=== PATIENT | female | born 1950 | race Caucasian/White ===

== ENCOUNTER → 2017-01-07 | Outpatient (CLI) | payer OTHER ==
--- NOTE | 2017-01-07 15:08 | BD ---
EXAMINATION TYPE: MG DEXA axial skeleton. DATE OF EXAM: 01/07/2017 COMPARISON: NONE CLINICAL HISTORY: post menopausal Height: 5'2 Weight: 151 FRAX RISK QUESTIONS: Alcohol (3 or more units per day): no Family History (Parent hip fracture): yes Glucocorticoids (More than 3mos): no (Ex: prednisone, prednisolone, methylprednisolone, dexamethasone, and hydrocortisone). History of Fracture in Adulthood: no Secondary Osteoporosis: 1. Type 1 Diabetes: no 2. Hyperthyroidism: no 3. Menopause before 45: yes 4. Malnutrition: no 5. Chronic liver disease: no Rheumatoid Arthritis: no Current Tobacco Use: yes RISK FACTORS HISTORY OF: Family History of Osteoporosis: Diet low in dairy products/other sources of calcium: Postmenopausal woman: MEDICATIONS: Additional Medications: hypertension, cholesterol, pain, blood thinner Additional History: post menopausal EXAM MEASUREMENTS: Bone mineral densitometry was performed using the [employer] System. Bone mineral density as measured about the Lumbar spine is: ----- L1-L4(G/cm2): 0.841 T Score Values are as follows: ----- L2: -2.9 ----- L3: -3.8 ----- L4: -2.7 ----- L1-L4: -2.8 Bone mineral density about the R hip (g/cm2): 0.696 Bone mineral density about the L hip (g/cm2): 0.698 T Score values are as follows: -----R Neck: -2.5 -----L Neck: -2.4 -----R Total: -1.7 -----L Total: -1.6 IMPRESSION: Osteoporosis (T Score less than -2.5) as noted by T Score values at theL1-L4 There is increased fracture risk and therapy is usually indicated based on age. Re-Screen 1-2 years. NOTE: T-SCORE=SD OF THE YOUNG ADULT MEAN.
--- NOTE | 2017-01-09 08:17 | MM ---
Reason for exam: screening (asymptomatic). History: Patient is postmenopausal. Family history of breast cancer in sister at age 58. Benign excisional biopsy of both breasts. Benign excisional biopsy of the left breast. Took estrogen for 1 year beginning at age 39. Physical Findings: A clinical breast exam by your physician is recommended on an annual basis and results should be correlated with mammographic findings. MG Screening Mammo w CAD Bilateral CC and MLO view(s) were taken. The breast tissue is heterogeneously dense. This may lower the sensitivity of mammography. Stable benign calcifications. Focal asymmetry upper outer left breast 9 cm from nipple. This finding is changed when compared with previous exams. ASSESSMENT: Incomplete: need additional imaging evaluation, BI-RAD 0 RECOMMENDATION: Special view mammogram of the left breast. If lesion persists on supplemental views, image directed ultrasound is recommended. [facility] will attempt to contact patient to return for supplemental views and ultrasound if indicated.
== END | disposition home or self-care (01) ==
LOC: RADMAMWWP 13:18
PROVIDERS: ATTEND Internal Medicine
DX: Z12.31 Encounter for screening mammogram for malignant neoplasm of breast (principal); M81.0 Age-related osteoporosis without current pathological fracture; Z78.0 Asymptomatic menopausal state
CPT/HCPCS: 77080; G0202

== ENCOUNTER → 2017-01-13 | Outpatient (CLI) | payer OTHER ==
--- NOTE | 2017-01-13 14:47 | MM ---
Reason for exam: additional evaluation requested from abnormal screening. Last mammogram was performed less than 1 month ago. History: Patient is postmenopausal. Family history of breast cancer in sister at age 58. Benign excisional biopsy of both breasts. Benign excisional biopsy of the left breast. Took estrogen for 1 year beginning at age 39. Physical Findings: Nurse did not find any significant physical abnormalities on exam. MG Work Up Mamm w CAD LT CC and MLO view(s) were taken of the left breast. Prior study comparison: January 07, 2017, bilateral MG screening mammo w CAD. Asymmetric breast tissue in the left upper outer quadrant persists stable from 2010. No new lesion evident. These results were verbally communicated with the patient and result sheet given to the patient on 01/13/17. ASSESSMENT: Benign, BI-RAD 2 RECOMMENDATION: Return to routine screening mammogram schedule for both breasts. Back on schedule.
== END | disposition home or self-care (01) ==
LOC: RADMAMWWP 12:51
PROVIDERS: ATTEND Internal Medicine
DX: R92.8 Other abnormal and inconclusive findings on diagnostic imaging of breast (principal)

== ENCOUNTER → 2017-02-21 | Outpatient (CLI) | payer OTHER ==
--- NOTE | 2017-02-23 18:39 | PE ---
EXAMINATION TYPE: PET CT fusion skull to thigh DATE OF EXAM: 02/23/2017 COMPARISON: None HISTORY: Lung cancer. Staging. TECHNIQUE: Following the intravenous administration of 13.14 mCi of F-18 FDG, whole body images are performed from the skull base to the midthigh. Images are reviewed on the computer in the coronal, a xial, and sagittal planes. Reconstructed rotating images are created on independent workstation and reviewed on the computer. A localization and attenuation correction CT is performed in conjunction with the PET scan. DLP of 293.54 SCAN: Initial staging. FINDINGS: SKULL BASE AND NECK: No hypermetabolic activity. CHEST, MEDIASTINUM, AND HILAR REGION: The known right lower lobe thick walled cavitary lung mass measuring up to 8.6 x 8.3 cm in transverse by anterior posterior dimension with a rim measuring 2.7 cm is strongly hypermetabolic with a maximu m SUV of 17.03. Smaller right lower lobe 5.5 mm and multiple surrounding subcentimeter satellite nodu les are seen that are below the threshold of PET CT. Left apical solid pulmonary nodule measures 6 mm and is also below the threshold of PET CT as it is not hypermetabolic, however presumed to represent metastasis given extent of disease. Findings are superimposed upon mild centrilobular pulmonary emph ysematous changes and multifocal atelectasis. Numerous enlarged hilar lymph nodes and mediastinal lymph nodes are seen that are hypermetabolic. Wit hin the right hilum conglomeration of lymph nodes measures approximately 2.7 x 1.4 cm with a maximum SUV of 9.87 and subcarinal lymph node measures 1.2 cm in short axis with a maximum SUV of 7.46. Pretr acheal lymph node measures 1.7 cm with an SUV of 15.07. Aorticopulmonary window node measures 1.2 cm in short axis with a maximum SUV of 4.8 cm. Within the superior mediastinum in the pretracheal space hypermetabolic adenopathy is seen measuring 1.1 cm in short axis. Left supraclavicular lymph node is also hypermetabolic measuring 1.7 cm on series 3 image 44 although a right-sided nonenlarged supracla vicular lymph node is seen measuring only 8 mm in short axis and does not demonstrate increased avidi ty likely due to size with a maximum SUV of 1.91. ABDOMEN AND PELVIS: No focal hypermetabolic activity. OSSEOUS STRUCTURES: Lytic sternal lesion is seen on series 3 image 69 and should be considered metast asis with a maximum SUV of 9.95. No ostial lysis is seen of the adjacent ribs on the right abutting t he cavitary lesion. Other metastatic foci are seen within the C7 and C6 vertebral bodies and transver se processes with a maximum SUV of 6.76. Hypermetabolic sclerotic lesion of the left hemisacrum and l ytic lesions are seen. On series 3 image 167 measuring 8 mm and on series 3 image 162 measuring 1.2 c m respectively. Left fascial 1.0 cm sclerotic hypermetabolic lesion is also present as is a lytic les ion of the left femur measuring at least 2.5 x 2.9 cm of the femoral neck on series 3 image 200. Mark Anthony tional metastatic hypermetabolic foci are seen within the thoracic and lumbar vertebral bodies with s ome of the largest present at T12 and T11. These are mixed sclerotic and lytic. These are highly susp icious for considered metastasis OTHER CT: No pleural effusion or pneumothorax is seen. Descending thoracic aortic aneurysm is present as descending thoracic aorta measures up to 4.0 cm. Post obstructive atelectasis is seen within the right lower lobe due to endobronchial obstruction and narrowing by the right hilar adenopathy and rig ht lower lobe mass. Unenhanced liver, gallbladder, spleen, adrenal glands, pancreas, and kidneys are of unremarkable morphology. Mild calcific atheromatous changes are present of the abdominal aorta. Fe moral-femoral vascular shunt is present within the pelvis. No discrete adenopathy is seen within the abdomen or pelvis. Bowel is of normal course and caliber. IMPRESSION: 1. Large right lower lobe strongly hypermetabolic cavitary known neoplasm with the PET/CT staging of T4 N3 M1 as there is contralateral presumed pulmonary metastasis, supraclavicular hypermetabolic charbel opathy and distant metastasis within the axial skeleton and left femur. 2. Descending thoracic aortic aneurysm measuring 4.0 cm. 2. No evidence of solid organ metastasis within the abdomen or abdominal/pelvic adenopathy.
== END | disposition home or self-care (01) ==
LOC: RADPETMAIN 12:54
PROVIDERS: ATTEND Radiology Radiation Oncology
DX: C34.31 Malignant neoplasm of lower lobe, right bronchus or lung (principal); I71.2 Thoracic aortic aneurysm, without rupture
CPT/HCPCS: 78815; A9552

== ENCOUNTER 2017-03-30 16:40 | Inpatient (IN) | payer OTHER ==
[2017-03-30] MEDS ORDERED: methylPREDNISolone SOD SUCCI 125 MG/2 ML VIAL IV STA (18:19)
[2017-03-30] MEDS ORDERED: IPRATROPIUM-ALBUTEROL 3 ML NEB INHALATION STA (18:19)
[2017-03-30] MEDS ORDERED: SODIUM CHLORIDE 0.9% 1,000 ML IV STA ×2 (18:19→22:10)
--- NOTE | 2017-03-30 18:27 | ED ---
General Adult HPI - General Chief complaint: Extremity Problem,Nontraumatic Stated complaint: Circulation problems in feet Time Seen by Provider: 03/30/17 18:10 Source: patient, family Mode of arrival: wheelchair Limitations: no limitations - History of Present Illness Initial comments: This 66-year-old white female presents with son with the complaint of the lower extremities feeling cool to touch. He states that they first noticed this around 11 AM today. She also is complaining of some pain to the bilateral feet. He states that the feet look purplish on the bottom. She does have a history of previous lower extremity bypass surgery by Dr. Brown approximately 1-1/2 months ago. This apparently was a redo surgery. She had a left second toe amputation prior to this. She had an x-ray done well at [facility] of her chest and they noted his age for lung cancer. She apparently has not been on any treatment for the lung cancer. She was diagnosed with stage IV lung cancer. She apparently has metastases to her brain as well as to the bones in her lower extremity. She chose to not undergo any treatment for her cancer. She has been having some chronic shortness of breath and presents with a pulse ox of 85% on room air. She is not on any home oxygen. There has been no fevers or chills. She denies any actual chest pain. She does complain of some shortness of breath. She has had an occasional cough. The son relates that she does seem somewhat more forgetful recently. - Related Data Home Medications Medication Instructions Recorded Confirmed Atorvastatin [Lipitor] 40 mg PO DAILY 02/25/17 03/30/17 Cilostazol [Pletal] 50 mg PO BID 02/25/17 03/30/17 Metoprolol Tartrate [Lopressor] 25 mg PO BID 02/25/17 03/30/17 Albuterol Inhaler [Ventolin Hfa 2 puff INHALATION RT-Q4H PRN 03/30/17 03/30/17 Inhaler] Amitriptyline HCl [Elavil] 25 mg PO DAILY 03/30/17 03/30/17 Aspirin EC [Ecotrin Low Dose] 81 mg PO DAILY 03/30/17 03/30/17 Ergocalciferol (Vitamin D2) 50,000 unit PO VELA 03/30/17 03/30/17 [Vitamin D2] Lisinopril [Zestril] 5 mg PO DAILY 03/30/17 03/30/17 Losartan [Cozaar] 25 mg PO HS 03/30/17 03/30/17 Morphine Sulfate [Ms Contin] 15 mg PO BID 03/30/17 03/30/17 Omeprazole 20 mg PO DAILY 03/30/17 03/30/17 Rivaroxaban [Xarelto] 20 mg PO HS 03/30/17 03/30/17 guaiFENesin [Mucinex] 1,200 mg PO BID 03/30/17 03/30/17 Previous Rx's Medication Instructions Recorded Budesonide-Formot 160-4.5 Mcg 2 puff INHALATION RT-BID #1 inhaler 03/02/17 [Symbicort 160-4.5 Mcg Inhaler] Ipratropium-Albuterol Nebulize 3 ml INHALATION RT-QID PRN #120 03/02/17 [Duoneb 0.5 mg-3 mg/3 ml Soln] ampul.neb Allergies Allergy/AdvReac Type Severity Reaction Status Date / Time No Known Allergies Allergy Verified 03/30/17 18:31 Review of Systems ROS Statement: Those systems with pertinent positive or pertinent negative responses have been documented in the HPI. ROS Other: All systems not noted in ROS Statement are negative. Past Medical History Past Medical History: Cancer, COPD, Deep Vein Thrombosis (DVT), Hypertension Additional Past Medical History / Comment(s): lung cancer History of Any Multi-Drug Resistant Organisms: None Reported Additional Past Surgical History / Comment(s): Femoral bypass, toe amputation, cervical infusion, tubal ligation Past Psychological History: No Psychological Hx Reported Smoking Status: Former smoker Past Alcohol Use History: None Reported Past Drug Use History: None Reported - Past Family History Mother History Unknown: Yes General Exam - General Exam Comments Initial Comments: GENERAL: The patient is well nourished and well hydrated. VITAL SIGNS: Heart rate, blood pressure, respiratory rate reviewed as recorded in nurse's notes. EYES: Pupils are round and reactive. Extraocular movements are intact. No conjunctival / lid redness or swelling. ENT: No external evidence of injury, swelling, or ecchymosis. Airway is patent. Throat is clear. NECK: Nontender. No swelling or evidence of injury. No subcutaneous emphysema. Trachea is midline. No thyroid mass. HEART: A tachycardic heart rate is noted. Good peripheral pulses. LUNGS/CHEST: There is scattered wheezing noted bilaterally. No ecchymosis, subcutaneous emphysema, or tenderness. The patient is fairly tachypneic. ABDOMEN: Abdomen soft without tenderness. No palpable masses or organomegaly. No peritoneal signs. No abdominal wall swelling or ecchymosis. EXTREMITIES: Normal muscle tone and function. No thoracolumbar tenderness. There is an amputation of the left second toe. There is a darkish hue to the plantar aspect of both feet but there is good capillary refill throughout. There is decreased pedal pulses noted bilaterally. There may be some slight tenderness to the feet. NEUROLOGIC: Sensation is grossly intact. Cranial nerve exam reveals face is symmetrical, tongue is midline, speech is clear. SKIN: There is a darkish she is noted to the plantar aspect of bilateral feet. No induration or masses noted. PSYCHIATRIC: Alert and oriented. Appropriate behavior and judgment. 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 All diagnostics are reviewed. The patient had an EKG done which shows a sinus tachycardia at a rate of 136. There is no acute ST-T wave changes otherwise noted. The DC interval is 138, QRS duration is 68, and the QTC intervals 424. The patient does receive a DuoNeb breathing treatment. She also receives oxygen. The CO2 is slightly low on the laboratory analysis in the white blood cell count is elevated. An arterial Doppler initially was ordered but this was canceled as the technologist is unable to perform this test. There is no handheld Dopplers to further evaluate the pulses in the feet but on recheck there does appear to be very slight pedal pulses noted. The calcium is elevated and this is likely due to her lung cancer. Patient had bilateral lower extremity venous Dopplers and this does not show any evidence of DVT. She also had a computed tomography scan of the thorax and abdomen and this does not show any evidence of pulmonary embolism. It does show the very large cavitated mass measures approximately 10 cm in the right lung. It also shows some associated pulmonary infiltrates. There is a 4 cm thoracic aortic aneurysm. She will be covered with antibiotics for likely hospital-acquired pneumonia. This felt as though she has very advanced lung cancer with metastases and has an extremely poor prognosis. Is felt that the dark hue to her feet likely it was due to some associated hypoxia and there is no clinical evidence of arterial occlusion to lower extremities. The case is discussed with Dr. Ramos and he is agreeable to admission with pulmonology and vascular surgery to consult. Approximately 40 minutes of critical care time is utilized and the treatment of the patient. Upon discussing CODE STATUS, she relates that she does not want to be on a ventilator but is agreeable to CPR, chest compression and IV medications. - Lab Data Result diagrams: 03/30/17 18:22 03/30/17 18:22 Lab Results 03/30/17 03/30/17 03/30/17 Range/Units 18:22 18:22 18:22 WBC 17.2 H (3.8-10.6) k/uL RBC 4.43 (3.80-5.40) m/uL Hgb 11.7 (11.4-16.0) gm/dL Hct 37.7 (34.0-46.0) % MCV 85.0 D (80.0-100.0) fL MCH 26.3 (25.0-35.0) pg MCHC 30.9 L (31.0-37.0) g/dL RDW 15.2 (11.5-15.5) % Plt Count 232 (150-450) k/uL Neutrophils % 80 % Lymphocytes % 9 % Monocytes % 6 % Eosinophils % 2 % Basophils % 0 % Neutrophils # 13.8 H (1.3-7.7) k/uL Lymphocytes # 1.5 (1.0-4.8) k/uL Monocytes # 1.1 H (0-1.0) k/uL Eosinophils # 0.4 (0-0.7) k/uL Basophils # 0.1 (0-0.2) k/uL Hypochromasia Marked Poikilocytosis Slight PT (9.0-12.0) sec INR (<1.2) APTT (22.0-30.0) sec D-Dimer (<0.60) mg/L FEU Sodium 137 (137-145) mmol/L Potassium 4.9 (3.5-5.1) mmol/L Chloride 105 (98-107) mmol/L Carbon Dioxide 19 L (22-30) mmol/L Anion Gap 13 mmol/L BUN 40 H (7-17) mg/dL Creatinine 0.90 (0.52-1.04) mg/dL Est GFR (MDRD) Af Amer >60 (>60 ml/min/1.73 sqM) Est GFR (MDRD) Non-Af >60 (>60 ml/min/1.73 sqM) Glucose 105 H (74-99) mg/dL Calcium 13.2 H* (8.4-10.2) mg/dL Total Bilirubin 0.6 (0.2-1.3) mg/dL AST 31 (14-36) U/L ALT 96 H (9-52) U/L Alkaline Phosphatase 317 H (38-126) U/L Total Creatine Kinase 42 (30-135) U/L CK-MB (CK-2) 1.4 (0.0-2.4) ng/mL CK-MB (CK-2) Rel Index 3.3 Troponin I <0.012 (0.000-0.034) ng/mL NT-Pro-B Natriuret Pep pg/mL Total Protein 7.2 (6.3-8.2) g/dL Albumin 3.5 (3.5-5.0) g/dL 03/30/17 03/30/17 Range/Units 18:22 18:22 WBC (3.8-10.6) k/uL RBC (3.80-5.40) m/uL Hgb (11.4-16.0) gm/dL Hct (34.0-46.0) % MCV (80.0-100.0) fL MCH (25.0-35.0) pg MCHC (31.0-37.0) g/dL RDW (11.5-15.5) % Plt Count (150-450) k/uL Neutrophils % % Lymphocytes % % Monocytes % % Eosinophils % % Basophils % % Neutrophils # (1.3-7.7) k/uL Lymphocytes # (1.0-4.8) k/uL Monocytes # (0-1.0) k/uL Eosinophils # (0-0.7) k/uL Basophils # (0-0.2) k/uL Hypochromasia Poikilocytosis PT 11.1 (9.0-12.0) sec INR 1.1 (<1.2) APTT 19.6 L (22.0-30.0) sec D-Dimer 11.73 H (<0.60) mg/L FEU Sodium (137-145) mmol/L Potassium (3.5-5.1) mmol/L Chloride (98-107) mmol/L Carbon Dioxide (22-30) mmol/L Anion Gap mmol/L BUN (7-17) mg/dL Creatinine (0.52-1.04) mg/dL Est GFR (MDRD) Af Amer (>60 ml/min/1.73 sqM) Est GFR (MDRD) Non-Af (>60 ml/min/1.73 sqM) Glucose (74-99) mg/dL Calcium (8.4-10.2) mg/dL Total Bilirubin (0.2-1.3) mg/dL AST (14-36) U/L ALT (9-52) U/L Alkaline Phosphatase (38-126) U/L Total Creatine Kinase (30-135) U/L CK-MB (CK-2) (0.0-2.4) ng/mL CK-MB (CK-2) Rel Index Troponin I (0.000-0.034) ng/mL NT-Pro-B Natriuret Pep 316 pg/mL Total Protein (6.3-8.2) g/dL Albumin (3.5-5.0) g/dL Disposition Clinical Impression: Acute respiratory failure, Lung cancer, Brain metastases, Bone metastases, Hypoxia, Hypercalcemia of malignancy, Peripheral vascular disease, Sinus tachycardia, Hospital-acquired pneumonia, Thoracic aortic aneurysm, COPD ( chronic obstructive pulmonary disease) Disposition: ADMITTED IP TO THIS [facility] Condition: Serious Referrals: Tesha Bynum MD [Primary Care Provider] - 1-2 days Time of Disposition: 22:45 Decision Date: 03/30/17 Decision Time: 22:45
[2017-03-30 18:37] LABS: Basophils # (A) 0.1 k/uL (0-0.2); Basophils % (A) 0 %; CH 26.5; CHCM 31.2; Eosinophils # (A) 0.4 k/uL (0-0.7); Eosinophils % (A) 2 %; HCT 37.7 % (34.0-46.0); HDW 3.54; HGB 11.7 gm/dL (11.4-16.0); Hypochromasia Marked; Luc # (Auto) 0.36; Luc % (Auto) 2; Lymphocytes # (A) 1.5 k/uL (1.0-4.8); Lymphocytes % (A) 9 %; MCH 26.3 pg (25.0-35.0); MCHC 30.9 g/dL (31.0-37.0); Mean Platelet Volume 7.9; Monocytes # (A) 1.1 k/uL (0-1.0); Monocytes % (A) 6 %; Neutrophils # (A) 13.8 k/uL (1.3-7.7); Neutrophils % (A) 80 %; Poikilocytosis Slight; RBC 4.43 m/uL (3.80-5.40); RDW 15.2 % (11.5-15.5); WBC 17.2 k/uL (3.8-10.6)
[2017-03-30 18:50] LABS: ALT 96 U/L (9-52); AST 31 U/L (14-36); Alkaline Phosphatase 317 U/L (38-126); Anion Gap 13 mmol/L; Blood Urea Nitrogen 40 mg/dL (7-17); Carbon Dioxide 19 mmol/L (22-30); Chloride 105 mmol/L (98-107); Glucose 105 mg/dL (74-99); INR 1.1 (<1.2); Non-African American GFR(MDRD) >60 (>60 ml/min/1.73 sqM); Potassium 4.9 mmol/L (3.5-5.1); Prothrombin Time 11.1 sec (9.0-12.0); Sodium 137 mmol/L (137-145); Total Bilirubin 0.6 mg/dL (0.2-1.3); Total Protein 7.2 g/dL (6.3-8.2)
[2017-03-30 18:55] LABS: Calcium 13.2 mg/dL (8.4-10.2)
--- NOTE | 2017-03-30 18:58 | XR ---
EXAMINATION TYPE: XR chest 2V DATE OF EXAM: 03/30/2017 COMPARISON: 02/25/2017 HISTORY: Short of breath. Lung cancer. TECHNIQUE: Frontal and lateral views of the chest are obtained. FINDINGS: There is a 13 cm masslike density with fluid level in the right posterior midlung field. T here is pulmonary vascular congestion. Thoracic aorta is atheromatous. There is slight blunting of ri ght costophrenic angle. IMPRESSION: There is a large cavitating mass in the right midlung that is slightly increased in size compared to last exam. There is new pulmonary vascular congestion consistent with congestive heart f ailure. Lymphangitic metastatic disease cannot be excluded. Small right pleural effusion. Aortic aneu rysm seen at the arch. This measures 5 cm and probably not changed.
[2017-03-30 18:59] LABS: Creatine Kinase 42 U/L (30-135)
[2017-03-30 19:05] LABS: Partial Thromboplastin Time 19.6 sec (22.0-30.0)
[2017-03-30 19:12] LABS: Creatine Kinase MB 1.4 ng/mL (0.0-2.4); Troponin I <0.012 ng/mL (0.000-0.034)
[2017-03-30] MEDS ORDERED: RX INFO: IV CONTRAST WAS GIVEN 1 EACH MISC MISCELLANE PRN (20:09)
--- NOTE | 2017-03-30 22:00 | CT ---
EXAMINATION TYPE: CT angio thoracic/abd aorta DATE OF EXAM: 03/30/2017 COMPARISON: NONE HISTORY: Shortness of breath and Leg pain CT DLP: 981.6 mGycm. Automated Exposure Control for Dose Reduction was Utilized. CONTRAST: CT scan of the thorax, abdomen and pelvis is performed with IV Contrast, patient injected with 100 mL of Omnipaque 350. There are 3-D post processed images. FINDINGS: There is consolidation in the right posterior lung field with cavitation. This measures 10 cm. There is patchy subpleural interstitial infiltrate in both lungs. There is 4 cm aneurysm of the ascending a eugenia. There is 4 cm aneurysm of the aortic arch. The descending aorta measures 3.3 cm. There is massl duyen infiltrate at the right pulmonary hilum. There is no evidence of aortic dissection. There is atherosclerotic plaque in the abdominal aorta. Th ere is occlusion of the left common iliac artery at its origin. The right common iliac arteries paten t. There is patency of the superior mesenteric artery and the celiac artery. There is bilateral patency of the renal arteries. Kidneys show normal contrast opacification. There is no hydronephrosis. There is patency of the right internal and external iliac arteries. There is a femoral-femoral artery bypass graft that appears patent. CONCLUSION: Atherosclerotic vascular disease. 4 cm aneurysm of the thoracic aorta. No evidence of dissection. Com plete occlusion left common iliac artery. It is patency of the femoral-femoral artery bypass graft. T he left femoral artery is filled from the bypass graft. Consolidation in the right lung is similar to old CT scan of 02/26/2017. No evidence of pulmonary emb olism. Masslike consolidation in the right lung with cavitation.
--- NOTE | 2017-03-30 22:37 | US ---
EXAMINATION TYPE: US venous doppler duplex LE DATE OF EXAM: 03/30/2017 9:05 PM COMPARISON: NONE CLINICAL HISTORY: Pain. SIDE PERFORMED: Bilateral TECHNIQUE: The lower extremity deep venous system is examined utilizing real time linear array sonog nasreen with graded compression, doppler sonography and color-flow sonography. VESSELS IMAGED: External Iliac Vein (EIV) Common Femoral Vein Deep Femoral Vein Greater Saphenous Vein * Femoral Vein Popliteal Vein Small Saphenous Vein * Proximal Calf Veins (* superficial vessels) Right Leg: Negative for DVT Left Leg: Negative for DVT No evidence of DVT bilaterallly IMPRESSION: Negative exam. No evidence of deep venous thrombosis in both legs.
[2017-03-30] MEDS ORDERED: PIPERACILLIN-TAZOBACTAM 4.5 GM in DEXTROSE/WATER 1 50ML.BAG IVPB STA (22:40)
[2017-03-30] MEDS ORDERED: VANCOMYCIN 1,250 MG in SODIUM CHLORIDE 0.9% 250 ML IVPB STA (22:41)
[2017-03-30] MEDS ORDERED: VANCOMYCIN IV PER PHARMACY 1 EACH MISC MISCELLANE PRN (22:41)
[2017-03-30] MEDS ORDERED: PNEUMONIA PROTOCOL UTILIZED 1 EACH MISC PO PRN (22:55)
[2017-03-30] MEDS ORDERED: HYDROmorphone 1 MG/ML 1 ML SYRINGE IVP STA (23:57)
[2017-03-30] MEDS ORDERED: HYDROmorphone 1 MG/ML 1 ML SYRINGE IVP PRN (23:57)
[2017-03-31] MEDS: HYDROmorphone 0.5 MG/0.5 ML SYRINGE IVP PRN ×3 (01:17→06:25)
[2017-03-31 03:10] VITALS: BMI 25.0
[2017-03-31] MEDS: PANTOPRAZOLE 40 MG TABLET PO SCH (06:13)
[2017-03-31] MEDS ORDERED: LISINOPRIL 5 MG TAB PO SCH (09:00)
[2017-03-31] MEDS: MORPHINE SULFATE ER 15 MG TABLET PO SCH ×2 (09:13→21:42)
[2017-03-31] MEDS: AMITRIPTYLINE HCL 25 MG TAB PO SCH (09:15)
[2017-03-31] MEDS: METOPROLOL TARTRATE 25 MG TAB PO SCH ×2 (09:16→21:36)
[2017-03-31] MEDS: CILOSTAZOL 100 MG TAB PO SCH ×2 (09:16→21:36)
[2017-03-31] MEDS: ASPIRIN 81 MG PO SCH (09:16)
[2017-03-31] MEDS: ATORVASTATIN 40 MG TAB PO SCH (09:16)
[2017-03-31] MEDS: guaiFENesin 600 MG TABLET.ER PO SCH ×2 (09:16→21:36)
[2017-03-31] MEDS: methylPREDNISolone SOD SUCCI 125 MG/2 ML VIAL IV SCH ×2 (09:17→12:05)
--- NOTE | 2017-03-31 09:36 | CONS ---
CONSULTATION DATE OF SERVICE: 03/31/2017 CHIEF COMPLAINT OR REASON FOR CONSULTATION: Peripheral arterial disease with history of [id number] artery bypass. HISTORY OF PRESENT ILLNESS: This is a 66-year-old female who is well known to me, who presented to the emergency department with complaints of her lower extremity feeling cool to the touch. She also noted that her bilateral lower extremities were discolored with a bluish hue. She states that she has been having some chronic shortness of breath since her recent diagnosis of lung cancer. She currently has been diagnosed with stage IV lung cancer, which she has chosen to not be treated with chemotherapy. When she was in the emergency department, her pulse ox was approximately 85% on room air. She is not on any home oxygen presently. She denies any fevers, chills, chest pain. She does state she has shortness of breath as well as coughing spells. She denies any pain in her lower extremity currently, and has noted that her feet feel a lot warmer than they did previously. PAST MEDICAL HISTORY: COPD, DVT, hypertension, peripheral arterial disease, stage IV lung cancer. PAST SURGICAL HISTORY: Femoral to femoral artery bypass with reintervention with percutaneous thrombectomy and thrombolysis of her left lower extremity. SOCIAL HISTORY: She is a former smoker. Denies any alcohol or illicit drug use. FAMILY MEDICAL HISTORY: Mother, her history is unknown. Both her siblings had lung cancer. ALLERGIES: No known drug allergies. HOME MEDICATIONS: Atorvastatin, Pletal, Lopressor, Ventolin, Elavil, Ecotrin, vitamin D, Zestril, Cozaar, MS Contin, Xarelto, and Mucinex. REVIEW OF SYSTEMS: All systems were reviewed and are otherwise negative unless mentioned in HPI or past medical history. PHYSICAL EXAMINATION: VITAL SIGNS: Blood pressure 125/62 with a mean arterial pressure of 83, heart rate is 129, respirations 18, O2 sat 93% on 3 L, temperature is 97 degrees. GENERAL: Well-developed female in mild distress. Appears to be having difficulty with inspiration. She is alert and oriented x3. HEENT: Pupils equal, round, react to light. Extraocular muscles are intact. No scleral icterus noted. CARDIOVASCULAR: S1, S2. No S3, S4. Rate is tachycardic. PULMONARY: Noted wheeze and difficulty with inspiration. Decreased lung sounds on the right when compared to the left with some noted crackles. ABDOMEN: Soft, nondistended, nontender to palpation. There is a palpable pulse in her femoral to femoral artery bypass graft. EXTREMITIES: Right foot is warm to the touch with no evidence of any wounds. Left foot has a second toe amputation site with some eschar noted surrounding the previous incision. The foot is warm to the touch with good capillary refill. There are diminished pulses are noted in the DP and posterior tibial. NEURO: Muscle strength is weak in bilateral upper and lower extremities. She does have no focal deficits with good tactile sensation. PERTINENT LABS: CBC was reviewed showing an elevated white count of 17.2, hemoglobin 11.7, hematocrit 37.7, platelets 232. Coags, PTT is 19.6, INR of 1.1. D-dimer is elevated at 11.73. Chem panel shows sodium 137, potassium 4.9, chloride 105, carbon dioxide is 19 with anion gap of 13, BUN is 40, creatinine 0.9. Liver function tests demonstrated elevated ALT of 96 with an alk phos of 317, otherwise normal. Chest x-ray demonstrated a cavitating mass in the right lobe which has increased in size compared to the last exam. Thoracic aortic CT and abdominal CT demonstrates a small 4 cm thoracic aneurysm which is stable and cavitating mass in lung with lung cancer with metastasis. The fem-fem bypass is patent with good flow into the femoral arteries bilaterally. Venous duplex demonstrated no evidence of DVT in bilateral lower extremities. IMPRESSION: 1. Metastatic lung cancer. 2. Peripheral arterial disease, with history of a femoral to femoral artery bypass with revisions. 3. Leukocytosis secondary to large lung mass and likely pneumonia. 4. Acute respiratory failure secondary to lung cancer and pneumonia. 5. Thoracic aortic aneurysm which is stable. PLAN: Your medical management. At this time there is no vascular surgical intervention required. Her bypass graft is intact and patent with good capillary refill to the bilateral feet. Local wound care to the second toe amputation site. Thank you for allowing me to participate in your patient's care. If there are any questions, please feel free to call at any time. MMODL / IJN: [id number] / MTDNate
--- NOTE | 2017-03-31 10:39 | P.CNPUL ---
History of Present Illness Consult date: 03/31/17 Requesting physician: Tesha Bynum Reason for consult: dyspnea Chief complaint: Lower extremity pain History of present illness: This is a 66-year-old female patient with a known history of chronic obstructive pulmonary disease, DVT, hypertension, severe peripheral vascular disease with previous femoral bypass surgery and toe amputations. She was recently diagnosed with adenocarcinoma, stage IV lung cancer. She had been originally diagnosed in [facility]. A PET scan from January of this year revealed a large right lower lobe cavitary neoplasm with contralateral pulmonary metastasis, supraclavicular adenopathy in distant metastasis within the axial skeleton and left femur. A MRI of the brain revealed multiple enhancing nodules suggestive of metastasis. There is also noted calvarial lesions involving the left parietal calvarium. She was seen and evaluated while here as an inpatient one month ago by Dr. Ortiz for a COPD exacerbation. There is also some postobstructive pneumonia secondary to the lung cancer. She was treated and subsequent discharge home on 03/02/2017. The patient was to follow-up with Dr. Hoang in biomarkers were pending. She represented here to the emergency room yesterday with complaints of lower extremity pain and discoloration. A CT angiogram of the thoracic and abdominal aorta revealed atherosclerotic vascular disease. 4 cm aneurysm of the thoracic aorta. No evidence of dissection. 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 There is patency of the previous femoral-femoral artery bypass graft. The left femoral arteries filled from the bypass graft. Dopplers of the bilateral lower extremities were negative for DVT. The patient is on Xarelto in the outpatient setting. The patient also had complaints of increasing shortness of breath and we are consulted for the same. Her chest x-ray does reveal the large cavitating mass in the right mid lung that is slightly increased in size compared to previous in February 2017. There is new pulmonary vascular congestion consistent with congestive heart failure. Lymphatics attic metastatic disease cannot be excluded. There is a small right pleural effusion. Current white count 17.2. Hemoglobin 11.7. D-dimer 11.73. Creatinine 0.90. Calcium 13.2. ALT 96, alk phos 317. Troponin negative. ProBNP 316. She is currently afebrile. Maintaining O2 saturations in the mid 90s on 3 L/m per nasal cannula. Hemodynamically stable. She has been initiated on bronchodilators, Symbicort, IV Solu-Medrol. She is on vancomycin and Zosyn. She is currently awake. She is somewhat slow to respond. She currently denies any worsening shortness of breath. She has a loose nonproductive cough. Review of Systems ROS unobtainable: due to mental status Past Medical History Past Medical History: Cancer, COPD, Deep Vein Thrombosis (DVT), Hypertension Additional Past Medical History / Comment(s): Stage IV metastatic lung cancer History of Any Multi-Drug Resistant Organisms: None Reported Additional Past Surgical History / Comment(s): Femoral bypass, toe amputation, cervical infusion, tubal ligation Past Anesthesia/Blood Transfusion Reactions: No Reported Reaction Past Psychological History: No Psychological Hx Reported Smoking Status: Former smoker Past Alcohol Use History: None Reported Past Drug Use History: Marijuana - Past Family History Mother History Unknown: Yes Family Medical History: Cancer, Deep Vein Thrombosis (DVT) Additional Family Medical History / Comment(s): Lung Cancer Father Family Medical History: Cancer Additional Family Medical History / Comment(s): Lung Cancer Medications and Allergies Home Medications Medication Instructions Recorded Confirmed Type Atorvastatin [Lipitor] 40 mg PO DAILY 02/25/17 03/30/17 History Cilostazol [Pletal] 50 mg PO BID 02/25/17 03/30/17 History Metoprolol Tartrate [Lopressor] 25 mg PO BID 02/25/17 03/30/17 History Budesonide-Formot 160-4.5 Mcg 2 puff INHALATION RT-BID #1 inhaler 03/02/1703/30 Rx [Symbicort 160-4.5 Mcg Inhaler] Ipratropium-Albuterol Nebulize 3 ml INHALATION RT-QID PRN #120 03/02/17 Rx [Duoneb 0.5 mg-3 mg/3 ml Soln] ampul.neb Albuterol Inhaler [Ventolin Hfa 2 puff INHALATION RT-Q4H PRN 03/30/17 03/30/17 History Inhaler] Amitriptyline HCl [Elavil] 25 mg PO DAILY 03/30/17 03/30/17 History Aspirin EC [Ecotrin Low Dose] 81 mg PO DAILY 03/30/17 03/30/17 History Ergocalciferol (Vitamin D2) 50,000 unit PO VELA 03/30/17 03/30/17 History [Vitamin D2] Lisinopril [Zestril] 5 mg PO DAILY 03/30/17 03/30/17 History Losartan [Cozaar] 25 mg PO HS 03/30/17 03/30/17 History Morphine Sulfate [Ms Contin] 15 mg PO BID 03/30/17 03/30/17 History Omeprazole 20 mg PO DAILY 03/30/17 03/30/17 History Rivaroxaban [Xarelto] 20 mg PO HS 03/30/17 03/30/17 History guaiFENesin [Mucinex] 1,200 mg PO BID 03/30/17 03/30/17 History Allergies Allergy/AdvReac Type Severity Reaction Status Date / Time No Known Allergies Allergy Verified 03/30/17 18:31 Physical Exam Vitals: Vital Signs Temp Pulse Pulse Pulse Resp BP BP 03/31/17 06:20 101 H 03/31/17 04:00 18 03/31/17 02:04 98.3 F 99 18 130/72 03/31/17 02:02 97 F L 105 H 18 150/72 03/30/17 22:52 129 H 18 125/62 03/30/17 21:29 125 H 18 148/63 03/30/17 19:03 142 H 03/30/17 18:52 144 H 03/30/17 18:30 124 H 26 H 03/30/17 17:23 98.0 F 130 H 20 121/63 BP Pulse Ox 03/31/17 06:20 146/73 03/31/17 04:00 03/31/17 02:04 94 L 03/31/17 02:02 93 L 03/30/17 22:52 93 L 03/30/17 21:29 89 L 03/30/17 19:03 03/30/17 18:52 03/30/17 18:30 03/30/17 17:23 85 L Intake and Output 03/30/17 03/31/17 03/31/17 22:59 06:59 14:59 Intake Total 118 Output Total 500 Balance -500 118 Intake: Oral 118 Output: Urine 500 Other: Voiding Method Bedpan Diaper Incontinent # Voids 1 Weight 62.142 kg 66 kg GENERAL EXAM: Alert, fairly comfortable in no apparent distress. HEAD: Normocephalic. EYES: Normal reaction of pupils, equal size. NOSE: Clear with pink turbinates. THROAT: No erythema or exudates. NECK: No masses, no JVD. CHEST: No chest wall deformity. LUNGS: Equal air entry with scattered rhonchi, crackles in the posterior bases more so on the right lung. Diminished. CVS: S1 and S2 normal with no audible murmur, regular rhythm. ABDOMEN: No hepatosplenomegaly, normal bowel sounds, no guarding or rigidity. SPINE: No scoliosis or deformity SKIN: No rashes CENTRAL NERVOUS SYSTEM: No focal deficits, tone is normal in all 4 extremities. EXTREMITIES: There is no peripheral edema. No clubbing, no cyanosis. Peripheral pulses are intact. Results - Laboratory Findings CBC and BMP: 03/30/17 18:22 03/30/17 18:22 PT/INR, D-dimer PT 11.1 sec (9.0-12.0) 03/30/17 18:22 INR 1.1 (<1.2) 03/30/17 18:22 D-Dimer 11.73 mg/L FEU (<0.60) H 03/30/17 18:22 Abnormal lab findings: Abnormal Labs 03/30/17 03/30/17 03/30/17 18:22 18:22 18:22 WBC 17.2 H MCHC 30.9 L Neutrophils # 13.8 H Monocytes # 1.1 H APTT 19.6 L D-Dimer 11.73 H Carbon Dioxide 19 L BUN 40 H Glucose 105 H Calcium 13.2 H* ALT 96 H Alkaline Phosphatase 317 H - Diagnostic Findings Chest x-ray: image reviewed Assessment and Plan Assessment: Impression: #1 Lower extremity pain and discomfort in a patient with a known history of severe peripheral vascular occlusive disease. CT angiogram of the thoracic and abdominal aorta revealed a 4 cm aortic aneurysm of the thoracic aorta. No evidence of dissection. Complete occlusion of the left common iliac artery. There is patency of the femoral-femoral bypass graft with left femoral artery filling from the bypass graft. Dopplers of the bilateral lower extremities are negative. Remains on Xarelto. #2 Acute exacerbation of chronic obstructive pulmonary disease. #3 Large increasing mass in the right mid lung. Stage IV adenocarcinoma. Lymphangitic metastatic disease is not excluded. Suspect postobstructive pneumonia. #4 Acute on chronic hypoxic respiratory failure secondary to above. 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 #6 Metastasis to the brain. #7 Severe peripheral vascular occlusive disease with previous fem-fem bypass with revisions and previous thrombectomy. #8 Thoracic aortic aneurysm, stable compared to previous. #9 History of chronic tobacco dependence. #10 History of DVT. #11 Hypertension. #12 Poor overall functional performance based on the above-mentioned multiple comorbidities. Plan: The patient was seen and evaluated by Dr. Kerr. Her chest x-rays and labs were reviewed. Her right lung mass is increased compared to one month ago. The patient has not undergone any treatment for her stage IV lung cancer thus far. She is a DO NOT INTUBATE CODE STATUS. She's been initiated on bronchodilators, Symbicort, IV Solu-Medrol and antibiotics. We'll make adjustments accordingly. She may qualify for home oxygen. She remains on Xarelto for anticoagulation. Her overall prognosis is quite poor. She follows with Dr. Hoang in the outpatient setting. We will continue to follow and make further recommendations based on her clinical status. I, the cosigning physician, have performed a history and physical examination on the patient. Lung sounds have scattered rhonchi bilaterally, crackles in the posterior bases more so on the right lung.. Maintaining good O2 saturations in the 90s on 2 L/m per nasal cannula. I have discussed the assessment and plan of care with my nurse practitioner, Niocle Miguel. I attest the above documented note as dictated by her. Time with Patient: Greater than 30
[2017-03-31] MEDS: SYMBICORT 160-4.5 MCG INHALER INHALATION SCH ×2 (11:48→20:34)
[2017-03-31] MEDS: IPRATROPIUM-ALBUTEROL 3 ML NEB INHALATION PRN ×3 (11:50→20:34)
[2017-03-31] MEDS: PIPERACILLIN-TAZOBACTAM 3.375 GM in DEXTROSE/WATER 1 50ML.BAG IVPB SCH ×3 (11:58→23:34)
--- NOTE | 2017-03-31 12:45 | XR ---
EXAMINATION TYPE: XR chest 2V DATE OF EXAM: 03/31/2017 COMPARISON: 03/30/2017 TECHNIQUE: PA and lateral views submitted. HISTORY: Difficulty breathing FINDINGS: Diffuse airspace disease with right-sided pleural effusion stable. Area of consolidation with air-flu id level in the right upper lobe is stable. Thoracic aorta appears to be enlarged correlate for aneur ysm. Aortic knob measures approximately 4.8 cm. Heart size stable. IMPRESSION: 1. Large area of consolidation or mass with air-fluid level possible cavitating lesion is stable from the previous exam. 2. Thoracic aortic aneurysm 3. Diffuse airspace disease greater on the right with no significant interval change. Differential in cludes pneumonia versus CHF.
--- NOTE | 2017-03-31 12:48 | P.HPIM ---
History of Present Illness H&P Date: 03/31/17 Chief Complaint: Shortness of breath This is a 66-year-old female with past medical history noted below significant for metastatic adenocarcinoma of the lung with known metastatic disease to the bone and brain who presented to the hospital with worsening shortness of breath. Patient been having progressive shortness of breath over the past several weeks. She recently finished antibiotic course of steroid course as an outpatient. She did not feel any better. For the past couple of days she was also having worsening left lower extremity pain. She noted some darkening of the skin that resolved prior to her presentation. She was evaluated in the emergency room and imaging of the chest showed worsening large cavitating mass of the right mid lung. Patient was started on broad-spectrum antibiotic and bronchodilators and was admitted to the hospital for further evaluation. Patient said that she is feeling slightly better since admission. She is requiring 2 L of oxygen via nasal cannula. Review of Systems Review of system: 14 points review of systems were obtained and were negative except to what were mentioned in the HPI. Past Medical History Past Medical History: Cancer, COPD, Deep Vein Thrombosis (DVT), Hypertension Additional Past Medical History / Comment(s): Stage IV metastatic lung cancer History of Any Multi-Drug Resistant Organisms: None Reported Additional Past Surgical History / Comment(s): Femoral bypass, toe amputation, cervical infusion, tubal ligation Past Anesthesia/Blood Transfusion Reactions: No Reported Reaction Past Psychological History: No Psychological Hx Reported Smoking Status: Former smoker Past Alcohol Use History: None Reported Past Drug Use History: Marijuana - Past Family History Mother History Unknown: Yes Family Medical History: Cancer, Deep Vein Thrombosis (DVT) Additional Family Medical History / Comment(s): Lung Cancer Father Family Medical History: Cancer Additional Family Medical History / Comment(s): Lung Cancer Medications and Allergies Home Medications Medication Instructions Recorded Confirmed Type RX: Atorvastatin [Lipitor] 40 mg PO DAILY 02/25/17 03/30/17 History RX: Cilostazol [Pletal] 50 mg PO BID 02/25/17 03/30/17 History RX: Metoprolol Tartrate [Lopressor] 25 mg PO BID 02/25/17 03/30/17 History RX: Budesonide-Formot 160-4.5 Mcg 2 puff INHALATION RT-BID #1 inhaler 03/02/17 03/30/17 Rx [Symbicort 160-4.5 Mcg Inhaler] RX: Ipratropium-Albuterol Nebulize 3 ml INHALATION RT-QID PRN #120 03/02/17 Rx [Duoneb 0.5 mg-3 mg/3 ml Soln] ampul.neb Albuterol Inhaler [Ventolin Hfa 2 puff INHALATION RT-Q4H PRN 03/30/17 03/30/17 History Inhaler] Amitriptyline HCl [Elavil] 25 mg PO DAILY 03/30/17 03/30/17 History Aspirin EC [Ecotrin Low Dose] 81 mg PO DAILY 03/30/17 03/30/17 History Ergocalciferol (Vitamin D2) 50,000 unit PO VELA 03/30/17 03/30/17 History [Vitamin D2] Lisinopril [Zestril] 5 mg PO DAILY 03/30/17 03/30/17 History Losartan [Cozaar] 25 mg PO HS 03/30/17 03/30/17 History Morphine Sulfate [Ms Contin] 15 mg PO BID 03/30/17 03/30/17 History RX: Omeprazole 20 mg PO DAILY 03/30/17 03/30/17 History Rivaroxaban [Xarelto] 20 mg PO HS 03/30/17 03/30/17 History guaiFENesin [Mucinex] 1,200 mg PO BID 03/30/17 03/30/17 History Allergies Allergy/AdvReac Type Severity Reaction Status Date / Time No Known Allergies Allergy Verified 03/30/17 18:31 Physical Exam Vitals: Vital Signs Temp Pulse Pulse Pulse Resp BP BP 03/31/17 12:02 108 H 03/31/17 12:00 98.1 F 104 H 104 H 18 03/31/17 11:51 92 03/31/17 08:00 97.2 F L 101 H 101 H 18 03/31/17 06:20 101 H 03/31/17 04:00 18 03/31/17 02:04 98.3 F 99 18 130/72 03/31/17 02:02 97 F L 105 H 18 150/72 03/30/17 22:52 129 H 18 125/62 03/30/17 21:29 125 H 18 148/63 03/30/17 19:03 142 H 03/30/17 18:52 144 H 03/30/17 18:30 124 H 26 H 03/30/17 17:23 98.0 F 130 H 20 121/63 BP Pulse Ox 03/31/17 12:02 03/31/17 12:00 152/69 92 L 03/31/17 11:51 03/31/17 08:00 144/63 92 L 03/31/17 06:20 146/73 03/31/17 04:00 03/31/17 02:04 94 L 03/31/17 02:02 93 L 03/30/17 22:52 93 L 03/30/17 21:29 89 L 03/30/17 19:03 03/30/17 18:52 03/30/17 18:30 03/30/17 17:23 85 L Intake and Output 03/30/17 03/31/17 03/31/17 22:59 06:59 14:59 Intake Total 118 Output Total 500 250 Balance -500 -132 Intake: Oral 118 Output: Urine 500 250 Other: Voiding Method Bedpan Bedpan Diaper Diaper Incontinent Incontinent # Voids 1 Weight 62.142 kg 66 kg General: The patient is awake and alert, in no distress Eye: there is normal conjunctiva bilaterally. Neck: The neck is supple, there is no JVD. Cardiovascular: Normal S1-S2, no S3-S4, no murmurs. Respiratory: Lungs clear to auscultation bilaterally Gastrointestinal: Abdomen is soft, nontender Musculoskeletal: There is no pedal edema. Neurological:. Speech is normal. Skin: Skin is warm and dry Results CBC & Chem 7: 03/30/17 18:22 03/30/17 18:22 Labs: Abnormal Lab Results - Last 24 Hours (Table) 03/30/17 03/30/17 03/30/17 Range/Units 18:22 18:22 18:22 WBC 17.2 H (3.8-10.6) k/uL MCHC 30.9 L (31.0-37.0) g/dL Neutrophils # 13.8 H (1.3-7.7) k/uL Monocytes # 1.1 H (0-1.0) k/uL APTT 19.6 L (22.0-30.0) sec D-Dimer 11.73 H (<0.60) mg/L FEU Carbon Dioxide 19 L (22-30) mmol/L BUN 40 H (7-17) mg/dL Glucose 105 H (74-99) mg/dL Calcium 13.2 H* (8.4-10.2) mg/dL ALT 96 H (9-52) U/L Alkaline Phosphatase 317 H (38-126) U/L Thrombosis Risk Factor Assmnt - Choose All That Apply Any of the Below Risk Factors Present?: Yes Each Factor Represents 1 point: Abnormal pulmonary function (COPD) Other Risk Factors: Yes Each Risk Factor Represents 2 Points: Age 61-74 years Each Risk Factor Represents 3 Points: Family history of DVT/PE, History of DVT/ PE Other congenital or acquired thrombophilia - If yes, enter type in comment: No Thrombosis Risk Factor Assessment Total Risk Factor Score: 9 Thrombosis Risk Factor Assessment Level: High Risk Assessment and Plan Assessment: 1. Acute COPD exacerbation 2. Underlying pneumonia suspected postobstructive: Blood and sputum culture pending 3. Stage IV adenocarcinoma of the lung with metastatic disease to the bone and the brain. Did not receive any treatment as of yet. I would consult oncology for further evaluation 4. Essential hypertension: Blood pressure well controlled 5. Severe peripheral vascular disease with prior fem-fem bypass of the left lower extremity well-known to Dr. Sadler. 6. History of superficial phlebitis involving the greater saphenous vein on anticoagulation with Rivaroxaban per vascular surgery recommendations Today, and reviewed her medication list lab work results. Prognosis is guarded. Patient is DO NOT RESUSCITATE/DO NOT INTUBATE. We will continue broad -spectrum antibiotic. Infectious disease consulted for antibiotic management. Pain control. Repeat lab work in the morning.
--- NOTE | 2017-03-31 17:40 | CONS ---
CONSULTATION This is a 66-year-old patient . The patient is known to us from the office. She had a fem-fem crossover done by Dr. Dawson in the past. She had a revision of the graft at [facility] for fem-fem crossover graft. She has been admitted to the Hospital with history of pneumonia. The patient also has a history of stage IV lung disease with mets. Patient is under care of Dr. Hoang. We were consulted for vascular evaluation. EXAMINATION: Patient was seen in her room. NECK: Supple. Crackles bilateral. ABDOMEN: Soft. Femorals are 1+. Posterior dorsalis pedis by the Doppler. The patient had a left foot 2nd toe amputation in the past. There is a scab formation noted. At this point, the patient has decent circulation in both lower extremities. We will follow with you. If she is discharged early, we will follow in our office. At this point, patient does not need any major surgical intervention from a vascular point of view. MMODL / IJN: [id number] /
[2017-03-31] MEDS: VANCOMYCIN 1,250 MG in SODIUM CHLORIDE 0.9% 250 ML IVPB SCH (17:54)
[2017-03-31] MEDS ORDERED: SODIUM CHLORIDE 0.9% 250 ML with PAMIDRONATE 60 MG IV ONE ×2 (18:00)
--- NOTE | 2017-03-31 18:04 | P.CONS ---
History of Present Illness - Reason for Consult Consult date: 03/31/17 metastatic lung cancer Requesting physician: Tesha Bynum - Chief Complaint SOB - History of Present Illness Stephanie is a very pleasant female pt who has seen Dr. Hoang once Mar 02 for treatment recommendations for her newly diagnosed metastatic NSCLC. Pt presented with an abnormal chest x-ray prior as part of her work up prior to vascular surgery on left leg in early Feb, there was a suspicious right lung mass, CT chest on 02/05/17 revealed an 8.7x7.8x10.7cm mass encasing portion of the pulmonary arteries involving the upper and lower lobe of the lung, mediastinal adenopathy, left lung apex nodule, 02/09/17 she had a bronchoscopy and Beasley transbronchial needle aspiration, pathology was consistent with adenocarcinoma of the lung with focal squamous differentiation, staging PET scan 02/21/17 revealed a large right lower lobe mass, mediastinal nodes, metastasis to the left lung and multiple bone lesions including large lytic lesion in the left femur and lytic lesion at T11 and T12, MRI brain revealed 4 small enhancing lesions from 1-3 mm in size. She was seen by Dr. Hoang for treatment recommendations on 03/02. Pt was not interested in chemo or radiation at that time, she was encouraged to see Rad Onc for bone and brain met treatment from purely a palliative standpoint, she does not remember seeing any one but I will check on that. Pt was going to consider targeted or immunotherapy, biomarkers were pending were pending, once returned PDL1 was 90% so pt was contacted on 03/13 with that info and stated she would call back wither decision. Pt does not remember that conversation at this time. Pt came to the hospital with c/o progressive SOB and VIRGEN, she does not remember having fever, nausea, palpitations, changes in bowel or bladder habits, or pain. She is pleasantly confused, no acute c/o at this time. Review of Systems ROS is as stated, pt did have some difficulty staying on track with exam and questions Past Medical History Past Medical History: Cancer, COPD, Deep Vein Thrombosis (DVT), Hypertension Additional Past Medical History / Comment(s): Stage IV metastatic lung cancer History of Any Multi-Drug Resistant Organisms: None Reported Additional Past Surgical History / Comment(s): Femoral bypass, toe amputation, cervical infusion, tubal ligation Past Anesthesia/Blood Transfusion Reactions: No Reported Reaction Past Psychological History: No Psychological Hx Reported Smoking Status: Former smoker Past Alcohol Use History: None Reported Past Drug Use History: Marijuana - Past Family History Mother History Unknown: Yes Family Medical History: Cancer, Deep Vein Thrombosis (DVT) Additional Family Medical History / Comment(s): Lung Cancer Father Family Medical History: Cancer Additional Family Medical History / Comment(s): Lung Cancer Medications and Allergies Home Medications Medication Instructions Recorded Confirmed Type Atorvastatin [Lipitor] 40 mg PO DAILY 02/25/17 03/30/17 History Cilostazol [Pletal] 50 mg PO BID 02/25/17 03/30/17 History Metoprolol Tartrate [Lopressor] 25 mg PO BID 02/25/17 03/30/17 History Budesonide-Formot 160-4.5 Mcg 2 puff INHALATION RT-BID #1 inhaler 03/02/1703/30 Rx [Symbicort 160-4.5 Mcg Inhaler] Ipratropium-Albuterol Nebulize 3 ml INHALATION RT-QID PRN #120 03/02/17 Rx [Duoneb 0.5 mg-3 mg/3 ml Soln] ampul.neb Albuterol Inhaler [Ventolin Hfa 2 puff INHALATION RT-Q4H PRN 03/30/17 03/30/17 History Inhaler] Amitriptyline HCl [Elavil] 25 mg PO DAILY 03/30/17 03/30/17 History Aspirin EC [Ecotrin Low Dose] 81 mg PO DAILY 03/30/17 03/30/17 History Ergocalciferol (Vitamin D2) 50,000 unit PO VELA 03/30/17 03/30/17 History [Vitamin D2] Lisinopril [Zestril] 5 mg PO DAILY 03/30/17 03/30/17 History Losartan [Cozaar] 25 mg PO HS 03/30/17 03/30/17 History Morphine Sulfate [Ms Contin] 15 mg PO BID 03/30/17 03/30/17 History Omeprazole 20 mg PO DAILY 03/30/17 03/30/17 History Rivaroxaban [Xarelto] 20 mg PO HS 03/30/17 03/30/17 History guaiFENesin [Mucinex] 1,200 mg PO BID 03/30/17 03/30/17 History Allergies Allergy/AdvReac Type Severity Reaction Status Date / Time No Known Allergies Allergy Verified 03/30/17 18:31 Physical Exam Vitals: Vital Signs Temp Pulse Pulse Pulse Resp BP BP 03/31/17 16:33 95 18 03/31/17 16:21 95 18 03/31/17 12:02 108 H 03/31/17 12:00 98.1 F 104 H 104 H 18 03/31/17 11:51 92 03/31/17 08:00 97.2 F L 101 H 101 H 18 03/31/17 06:20 101 H 03/31/17 04:00 18 03/31/17 02:04 98.3 F 99 18 130/72 03/31/17 02:02 97 F L 105 H 18 150/72 03/30/17 22:52 129 H 18 125/62 03/30/17 21:29 125 H 18 148/63 03/30/17 19:03 142 H 03/30/17 18:52 144 H 03/30/17 18:30 124 H 26 H BP Pulse Ox 03/31/17 16:33 03/31/17 16:21 03/31/17 12:02 03/31/17 12:00 152/69 92 L 03/31/17 11:51 03/31/17 08:00 144/63 92 L 03/31/17 06:20 146/73 03/31/17 04:00 03/31/17 02:04 94 L 03/31/17 02:02 93 L 03/30/17 22:52 93 L 03/30/17 21:29 89 L 03/30/17 19:03 03/30/17 18:52 03/30/17 18:30 Intake and Output 03/31/17 03/31/17 03/31/17 06:59 14:59 22:59 Intake Total 118 Output Total 500 250 Balance -500 -132 Intake: Oral 118 Output: Urine 500 250 Other: Voiding Method Bedpan Bedpan Diaper Diaper Incontinent Incontinent # Voids 1 Weight 66 kg - Constitutional General appearance: average body habitus, mild distress - EENT Eyes: anicteric sclerae ENT: normal oropharynx - Neck Neck: no lymphadenopathy - Respiratory Respiratory: right: diminished, left: CTA - Cardiovascular Heart sounds: normal: S1, S2 Abnormal Heart Sounds: systolic murmur leg Peripheral Edema: bilateral: None - Gastrointestinal General gastrointestinal: no absent bowel sounds, no decreased bowel sounds, no distended, no hepatomegaly, no hyperactive bowel sounds, normal bowel sounds, no organomegaly, no rigid, no scaphoid, soft, no splenomegaly, no tenderness, no umbilical hernia, no ventral hernia - Integumentary Integumentary: pale - Neurologic Neurologic: CNII-XII intact - Musculoskeletal Musculoskeletal: generalized weakness - Psychiatric judgment intact for short periods of time, pt forgets quickly and has some trouble with remote recall Psychiatric: A&O x's 3, appropriate affect Results CBC & Chem 7: 03/30/17 18:22 03/30/17 18:22 Labs: Abnormal Lab Results - Last 24 Hours (Table) 03/30/17 03/30/17 03/30/17 Range/Units 18:22 18:22 18:22 WBC 17.2 H (3.8-10.6) k/uL MCHC 30.9 L (31.0-37.0) g/dL Neutrophils # 13.8 H (1.3-7.7) k/uL Monocytes # 1.1 H (0-1.0) k/uL APTT 19.6 L (22.0-30.0) sec D-Dimer 11.73 H (<0.60) mg/L FEU Carbon Dioxide 19 L (22-30) mmol/L BUN 40 H (7-17) mg/dL Glucose 105 H (74-99) mg/dL Calcium 13.2 H* (8.4-10.2) mg/dL ALT 96 H (9-52) U/L Alkaline Phosphatase 317 H (38-126) U/L Chest x-ray: report reviewed CT scan - chest: report reviewed Venous US: report reviewed Assessment and Plan (1) Brain metastases Narrative/Plan: Will check with Rad/Onc to see if they have seen pt. Current Visit: Yes Status: Acute Priority: High Code(s): C79.31 - SECONDARY MALIGNANT NEOPLASM OF BRAIN SNOMED Code(s): 42180040 (2) Lung cancer Current Visit: Yes Status: Acute Priority: High Code(s): C34.90 - MALIGNANT NEOPLASM OF UNSP PART OF UNSP BRONCHUS OR LUNG SNOMED Code(s): 357871208 (3) Hypercalcemia of malignancy Narrative/Plan: Aredia ordered, IV fluids at 100ml/hr, labs in AM Current Visit: Yes Status: Acute Priority: High Code(s): E83.52 - HYPERCALCEMIA SNOMED Code(s): 66935407 (4) Bone metastases Narrative/Plan: Will check with Rad/Onc to see if they have seen pt. Aredia ordered. Current Visit: Yes Status: Acute Priority: High Code(s): C79.51 - SECONDARY MALIGNANT NEOPLASM OF BONE SNOMED Code(s): 27825401 Plan: I was not able to speak to Radiation oncology to see if pt has been seen for treatment of brain mets, will contact in AM. Pt was contacted by Dr. Hoang on the regarding tumor PDL1 status which was 90%, which makes her a candidate for front line immunotherapy, we were awaiting a call back for pt decision. Will attempt to contact son to discuss. Pt may be more clear tomorrow after bisphosphonate treatment and hydration so, will follow up with her in AM.
[2017-03-31] MEDS: methylPREDNISolone SOD SUCCI 40 MG/ML 1 ML VIAL IV SCH ×2 (18:06→23:34)
[2017-03-31] MEDS: SODIUM CHLORIDE 0.9% 1,000 ML IV SCH (19:33)
[2017-03-31] MEDS: LOSARTAN 25 MG TAB PO SCH (21:36)
[2017-03-31] MEDS: RIVAROXABAN 10 MG TAB PO SCH (21:37)
[2017-04-01 06:09] LABS: Glucose,Whole Blood 131 mg/dL (75-99)
[2017-04-01 06:27] LABS: ALT 80 U/L (9-52); AST 39 U/L (14-36); Alkaline Phosphatase 212 U/L (38-126); Anion Gap 6 mmol/L; Blood Urea Nitrogen 24 mg/dL (7-17); Calcium 10.8 mg/dL (8.4-10.2); Carbon Dioxide 20 mmol/L (22-30); Chloride 111 mmol/L (98-107); Glucose 130 mg/dL (74-99); Magnesium 1.7 mg/dL (1.6-2.3); Non-African American GFR(MDRD) >60 (>60 ml/min/1.73 sqM); Potassium 3.9 mmol/L (3.5-5.1); Sodium 137 mmol/L (137-145); Total Bilirubin 0.1 mg/dL (0.2-1.3); Total Protein 5.2 g/dL (6.3-8.2)
[2017-04-01 06:37] LABS: Basophils % (A) 0 %; CH 26.1; CHCM 30.5; Eosinophils % (A) 0 %; HCT 29.1 % (34.0-46.0); HDW 3.54; Hypochromasia Marked; Luc # (Auto) 0.19; Luc % (Auto) 1; Lymphocytes % (A) 6 %; MCH 26.1 pg (25.0-35.0); MCHC 30.5 g/dL (31.0-37.0); MCV 85.6 fL (80.0-100.0); Mean Platelet Volume 8.4; Monocytes # (A) 0.9 k/uL (0-1.0); Monocytes % (A) 5 %; Neutrophils # (A) 16.3 k/uL (1.3-7.7); Neutrophils % (A) 88 %; Poikilocytosis Slight; WBC 18.5 k/uL (3.8-10.6); WBC (Perox) 18.14
[2017-04-01 06:43] LABS: HGB 8.9 gm/dL (11.4-16.0)
[2017-04-01] MEDS: SODIUM CHLORIDE 0.9% 1,000 ML IV SCH ×2 (07:12→10:50)
[2017-04-01] MEDS: VANCOMYCIN 1,250 MG in SODIUM CHLORIDE 0.9% 250 ML IVPB SCH ×2 (07:14→22:18)
[2017-04-01] MEDS: PANTOPRAZOLE 40 MG TABLET PO SCH (07:15)
[2017-04-01] MEDS: INSULIN ASPART 100 UNIT/ML 1 ML 10 ML VIAL SQ SCH ×4 (07:16→22:21)
[2017-04-01] MEDS: PIPERACILLIN-TAZOBACTAM 3.375 GM in DEXTROSE/WATER 1 50ML.BAG IVPB SCH ×2 (08:15→15:13)
[2017-04-01] MEDS: MORPHINE SULFATE ER 15 MG TABLET PO SCH ×2 (08:16→20:57)
[2017-04-01] MEDS: ATORVASTATIN 40 MG TAB PO SCH (08:17)
[2017-04-01] MEDS: METOPROLOL TARTRATE 25 MG TAB PO SCH ×2 (08:17→22:20)
[2017-04-01] MEDS: AMITRIPTYLINE HCL 25 MG TAB PO SCH (08:18)
[2017-04-01] MEDS: guaiFENesin 600 MG TABLET.ER PO SCH ×2 (08:18→22:19)
[2017-04-01] MEDS: ASPIRIN 81 MG PO SCH (08:19)
[2017-04-01] MEDS: methylPREDNISolone SOD SUCCI 40 MG/ML 1 ML VIAL IV SCH ×2 (08:19→15:15)
[2017-04-01] MEDS: CILOSTAZOL 100 MG TAB PO SCH ×2 (08:19→22:19)
[2017-04-01] MEDS: SYMBICORT 160-4.5 MCG INHALER INHALATION SCH ×2 (08:44→20:22)
[2017-04-01] MEDS: IPRATROPIUM-ALBUTEROL 3 ML NEB INHALATION PRN ×4 (08:44→20:21)
--- NOTE | 2017-04-01 10:31 | P.PN ---
Subjective Progress Note Date: 04/01/17 This is a 66-year-old female patient with a known history of chronic obstructive pulmonary disease, DVT, hypertension, severe peripheral vascular disease with previous femoral bypass surgery and toe amputations. She was recently diagnosed with adenocarcinoma, stage IV lung cancer. She had been originally diagnosed in [facility]. A PET scan from January of this year revealed a large right lower lobe cavitary neoplasm with contralateral pulmonary metastasis, supraclavicular adenopathy in distant metastasis within the axial skeleton and left femur. A MRI of the brain revealed multiple enhancing nodules suggestive of metastasis. There is also noted calvarial lesions involving the left parietal calvarium. She was seen and evaluated while here as an inpatient one month ago by Dr. Ortiz for a COPD exacerbation. There is also some postobstructive pneumonia secondary to the lung cancer. She was treated and subsequent discharge home on 03/02/2017. The patient was to follow-up with Dr. Hoang in biomarkers were pending. She represented here to the emergency room yesterday with complaints of lower extremity pain and discoloration. A CT angiogram of the thoracic and abdominal aorta revealed atherosclerotic vascular disease. 4 cm aneurysm of the thoracic aorta. No evidence of dissection. 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 There is patency of the previous femoral-femoral artery bypass graft. The left femoral arteries filled from the bypass graft. Dopplers of the bilateral lower extremities were negative for DVT. The patient is on Xarelto in the outpatient setting. The patient also had complaints of increasing shortness of breath and we are consulted for the same. Her chest x-ray does reveal the large cavitating mass in the right mid lung that is slightly increased in size compared to previous in February 2017. There is new pulmonary vascular congestion consistent with congestive heart failure. Lymphatics attic metastatic disease cannot be excluded. There is a small right pleural effusion. Current white count 17.2. Hemoglobin 11.7. D-dimer 11.73. Creatinine 0.90. Calcium 13.2. ALT 96, alk phos 317. Troponin negative. ProBNP 316. She is currently afebrile. Maintaining O2 saturations in the mid 90s on 3 L/m per nasal cannula. Hemodynamically stable. She has been initiated on bronchodilators, Symbicort, IV Solu-Medrol. She is on vancomycin and Zosyn. She is currently awake. She is somewhat slow to respond. She currently denies any worsening shortness of breath. She has a loose nonproductive cough. The patient is seen again today 04/01/2017 in follow-up on the selective care unit. She is slightly more alert and oriented today as compared to yesterday. Her calcium has improved currently at 10.8. She has been seen by medical oncology and the patient has been offered immunotherapy if she and her son agree. They've also been offered palliative radiation treatment to the bone and brain. Again awaiting further discussion with the family. Presently, she denies any worsening shortness of breath, cough or congestion. She is maintaining good O2 saturations in the 90s on 3 L/m per nasal cannula. She's been afebrile. Hemodynamically stable. White count 18.5. Hemoglobin 8.9. AST of 39 ALT of 80 alk phos 212. She has been seen by Dr. Sadler who feels there is no need for any surgical intervention regarding her lower extremity vascular changes. Objective - Vital Signs Vital signs: Vital Signs Temp 97.0 F L 04/01/17 04:00 Pulse 86 04/01/17 08:55 Resp 20 04/01/17 04:00 BP 130/75 04/01/17 04:00 Pulse Ox 92 L 04/01/17 04:00 Intake & Output 03/31/17 04/01/17 04/01/17 18:59 06:59 18:59 Intake Total 358 118 Output Total 500 201 400 Balance -142 -201 -282 Weight 66.5 kg Intake: Oral 358 118 Output: Urine 500 200 400 Urine/Stool Mix 1 Other: Voiding Method Bedpan Bedpan Diaper Diaper Incontinent Incontinent # Voids 1 - Exam GENERAL EXAM: Alert, fairly comfortable in no apparent distress. HEAD: Normocephalic. EYES: Normal reaction of pupils, equal size. NOSE: Clear with pink turbinates. THROAT: No erythema or exudates. NECK: No masses, no JVD. CHEST: No chest wall deformity. LUNGS: Equal air entry with scattered rhonchi, crackles in the posterior bases more so on the right lung. Diminished. CVS: S1 and S2 normal with no audible murmur, regular rhythm. ABDOMEN: No hepatosplenomegaly, normal bowel sounds, no guarding or rigidity. SPINE: No scoliosis or deformity SKIN: No rashes CENTRAL NERVOUS SYSTEM: No focal deficits, tone is normal in all 4 extremities. EXTREMITIES: There is no peripheral edema. No clubbing, no cyanosis. Peripheral pulses are intact. - Labs CBC & Chem 7: 04/01/17 06:02 04/01/17 06:02 Labs: Abnormal Lab Results - Last 24 Hours (Table) 04/01/17 04/01/17 04/01/17 Range/Units 05:54 06:02 06:02 WBC 18.5 H (3.8-10.6) k/uL RBC 3.40 L (3.80-5.40) m/uL Hgb 8.9 L D (11.4-16.0) gm/dL Hct 29.1 L (34.0-46.0) % MCHC 30.5 L (31.0-37.0) g/dL Neutrophils # 16.3 H (1.3-7.7) k/uL Chloride 111 H (98-107) mmol/L Carbon Dioxide 20 L (22-30) mmol/L BUN 24 H (7-17) mg/dL Glucose 130 H (74-99) mg/dL POC Glucose (mg/dL) 131 H (75-99) mg/dL Calcium 10.8 H (8.4-10.2) mg/dL Total Bilirubin 0.1 L (0.2-1.3) mg/dL AST 39 H (14-36) U/L ALT 80 H (9-52) U/L Alkaline Phosphatase 212 H (38-126) U/L Total Protein 5.2 L (6.3-8.2) g/dL Albumin 2.4 L (3.5-5.0) g/dL Microbiology - Last 24 Hours (Table) 03/30/17 23:08 Blood Culture - Preliminary Blood No Growth after 24 hours Assessment and Plan Assessment: Impression: #1 Lower extremity pain and discomfort in a patient with a known history of severe peripheral vascular occlusive disease. CT angiogram of the thoracic and abdominal aorta revealed a 4 cm aortic aneurysm of the thoracic aorta. No evidence of dissection. Complete occlusion of the left common iliac artery. There is patency of the femoral-femoral bypass graft with left femoral artery filling from the bypass graft. Dopplers of the bilateral lower extremities are negative. Remains on Xarelto. #2 Acute exacerbation of chronic obstructive pulmonary disease. #3 Large increasing mass in the right mid lung. Stage IV adenocarcinoma. Lymphangitic metastatic disease is not excluded. Suspect postobstructive pneumonia. #4 Acute on chronic hypoxic respiratory failure secondary to above. 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 #6 Metastasis to the brain. #7 Severe peripheral vascular occlusive disease with previous fem-fem bypass with revisions and previous thrombectomy. #8 Thoracic aortic aneurysm, stable compared to previous. #9 History of chronic tobacco dependence. #10 History of DVT. #11 Hypertension. #12 Poor overall functional performance based on the above-mentioned multiple comorbidities. Plan: The patient was seen and evaluated by Dr. Kerr. We will continue her on bronchodilators, Symbicort, IV Solu-Medrol and antibiotics. We'll make adjustments accordingly. She may qualify for home oxygen. She remains on Xarelto for anticoagulation. Her overall prognosis is quite poor. She follows with Dr. Hoang in the outpatient setting. She has been offered both immunotherapy and palliative radiation. She and her son will inform us of their decisions. In the interim, we'll continue with supportive care. She is a DO NOT INTUBATE CODE STATUS. We will continue to follow and make further recommendations based on her clinical status. I, the cosigning physician, have performed a history and physical examination on the patient. Lung sounds have scattered rhonchi bilaterally, crackles in the posterior bases more so on the right lung.. Maintaining good O2 saturations in the 90s on 2 L/m per nasal cannula. I have discussed the assessment and plan of care with my nurse practitioner, Nicole Miguel. I attest the above documented note as dictated by her.
[2017-04-01] MEDS: HYDROmorphone 0.5 MG/0.5 ML SYRINGE IVP PRN ×2 (10:42→16:46)
--- NOTE | 2017-04-01 11:48 | P.PN ---
Subjective Progress Note Date: 04/01/17 Principal diagnosis: Progressive dyspnea Patient is feeling better today in terms of breathing. She does not have any concerns. She is waiting for possible meeting with the oncologist later on today. Objective - Vital Signs Vital signs: Vital Signs Temp 96.9 F L 04/01/17 11:07 Pulse 80 04/01/17 11:41 Resp 20 04/01/17 11:07 BP 135/78 04/01/17 11:07 Pulse Ox 91 L 04/01/17 11:07 Intake & Output 03/31/17 04/01/17 04/01/17 18:59 06:59 18:59 Intake Total 358 118 Output Total 500 201 400 Balance -142 -201 -282 Weight 66.5 kg Intake: Oral 358 118 Output: Urine 500 200 400 Urine/Stool Mix 1 Other: Voiding Method Bedpan Bedpan Bedpan Diaper Diaper Diaper Incontinent Incontinent Incontinent # Voids 1 - Exam General: The patient is awake and alert, in no distress Eye: there is normal conjunctiva bilaterally. Neck: The neck is supple, there is no JVD. Cardiovascular: Normal S1-S2, no S3-S4, no murmurs. Respiratory: Lungs with diffuse rhonchi all over the chest Gastrointestinal: Abdomen is soft, nontender Musculoskeletal: There is no pedal edema. Neurological:. Speech is normal. Skin: Skin is warm and dry - Labs CBC & Chem 7: 04/01/17 06:02 04/01/17 06:02 Labs: Abnormal Lab Results - Last 24 Hours (Table) 04/01/17 04/01/17 04/01/17 Range/Units 05:54 06:02 06:02 WBC 18.5 H (3.8-10.6) k/uL RBC 3.40 L (3.80-5.40) m/uL Hgb 8.9 L D (11.4-16.0) gm/dL Hct 29.1 L (34.0-46.0) % MCHC 30.5 L (31.0-37.0) g/dL Neutrophils # 16.3 H (1.3-7.7) k/uL Chloride 111 H (98-107) mmol/L Carbon Dioxide 20 L (22-30) mmol/L BUN 24 H (7-17) mg/dL Glucose 130 H (74-99) mg/dL POC Glucose (mg/dL) 131 H (75-99) mg/dL Calcium 10.8 H (8.4-10.2) mg/dL Total Bilirubin 0.1 L (0.2-1.3) mg/dL AST 39 H (14-36) U/L ALT 80 H (9-52) U/L Alkaline Phosphatase 212 H (38-126) U/L Total Protein 5.2 L (6.3-8.2) g/dL Albumin 2.4 L (3.5-5.0) g/dL Microbiology - Last 24 Hours (Table) 03/30/17 23:08 Blood Culture - Preliminary Blood No Growth after 24 hours Assessment and Plan Assessment: 1. Acute COPD exacerbation 2. Underlying pneumonia suspected postobstructive: Blood and sputum culture pending. Continue broad spectrum antibiotic. Infectious disease following. 3. Stage IV adenocarcinoma of the lung with metastatic disease to the bone and the brain. Did not receive any treatment as of yet. She was seen and evaluated by oncology. Awaiting final plan for treatment 4. Essential hypertension: Blood pressure well controlled 5. Severe peripheral vascular disease with prior fem-fem bypass of the left lower extremity well-known to Dr. Sadler. 6. History of superficial phlebitis involving the greater saphenous vein on anticoagulation with Rivaroxaban per vascular surgery recommendations Today, and reviewed her medication list lab work results. Prognosis is guarded. Patient is DO NOT RESUSCITATE/DO NOT INTUBATE. We will continue broad -spectrum antibiotic. Pain control. Repeat lab work in the morning. Awaiting patient's and family meeting with oncology today to finalize plan of treatment.
[2017-04-01 12:04] LABS: Glucose,Whole Blood 132 mg/dL (75-99)
[2017-04-01 12:12] LABS: Glucose,Whole Blood 129 mg/dL (75-99)
[2017-04-01 16:46] LABS: Glucose,Whole Blood 165 mg/dL (75-99)
[2017-04-01] MEDS: ALPRAZolam 0.25 MG TAB PO PRN (17:59)
--- NOTE | 2017-04-01 19:21 | CONS ---
CONSULTATION DATE OF SERVICE: 04/01/2017. REASON FOR CONSULTATION: Postobstructive pneumonia antibiotic recommendation. HISTORY OF PRESENT ILLNESS: The patient is a 66 -year-old female with a past medical history significant for stage IV metastatic adenocarcinoma of the lung with mets to the brain and bone who presented to the [facility] ER on 03/30/2017 with chief complaint of increasing shortness of breath. Her breathing has been getting worse for the last few days to weeks before presenting to the hospital. The patient did have some chills; however, denies any high-grade fever. The patient denies having any nausea, vomiting or any abdominal pain or any diarrhea. With these symptoms, the patient was evaluated by the ER physician. The patient did have a chest x-ray which did show a large cavitary mass in the right mid lung, slightly increased in size compared to last exam. New pulmonary vascular congestion findings were conformed on her thoracic aorta CT. The patient has been started on broad-spectrum antibiotics in the form of vancomycin and Zosyn on admission to the hospital. I was asked to see the patient for further recommendation of antibiotic therapy. The patient did mention that her breathing has slightly improved compared to when she has been admitted to the hospital. She continues to have a cough, bringing up some sputum, but no hemoptysis. REVIEW OF SYSTEMS: CONSTITUTIONALLY: Positive for weakness and some chills. EYES: No complaint. ENT: No complaint. RESPIRATORY: As per HPI. CARDIOVASCULAR: No complaint. GENITOURINARY: No complaint. GASTROINTESTINAL: No complaint. MUSCULOSKELETAL: No complaint. INTEGUMENTARY: No complaint. PSYCHOLOGICAL: No complaint. ENDOCRINE: No complaint. NEUROLOGIC: No complaint. PAST MEDICAL HISTORY: Significant for stage IV metastatic lung cancer, DVT, COPD, hypertension, peripheral vascular disease. PAST SURGICAL HISTORY: Femoral bypass, toe amputation, cervical fusion, tubal ligation, bronchoscopy with biopsy. SOCIAL HISTORY: Remote history of smoking. No drinking. Did admit to marijuana use. FAMILY HISTORY: Mother with history of lung cancer and DVT. Father with history of lung cancer as well. ALLERGIES: No known drug allergies. MEDICATIONS: Include the patient is currently on: 1. DuoNeb. 2. Elavil. 3. Aspirin. 4. Lipitor. 5. Symbicort. 6. Pletal. 7. Vitamin D2. 8. Mucinex. 9. Dilaudid. 10.NovoLog. 11.Cozaar. 12.Solu-Medrol. 13.Lopressor. 14.Vancomycin. Pharmacy to dose. 15.MS Contin. 16.Protonix. 17.Pip/tazobactam. 18.Xarelto. EXAMINATION: Blood pressure is 135/78 with a pulse of 97, temperature of 96.9. She is 91% on 4L nasal cannula. GENERAL DESCRIPTION: A middle-aged female up in the bed in no distress. No tachypnea or accessory muscle of respiration use. HEENT: Pallor. No scleral icterus. Oral mucosa mucous membranes are dry. NECK: Trachea central. No thyromegaly. LUNGS: Unlabored breathing with some coarse breath sounds on the right side. No wheeze. HEART: S1, S2. Regular rate and rhythm noted. ABDOMEN: Soft. No tenderness. No guarding or rigidity. EXTREMITIES: No edema of feet. SKIN: No rash or mass palpable. NEUROLOGICAL: Patient is awake, alert, oriented x3. Mood and affect normal. LABS: Hemoglobin 8.8, white count of 18.5 with a BUN of 24, creatinine 0.70. Liver enzymes are slightly elevated. The patient did have blood cultures obtained which are currently pending. No sputum was collected. CT report as mentioned above. DIAGNOSTIC IMPRESSION AND PLAN: Patient admitted to hospital with increasing shortness of breath which is likely multifactorial in this patient who did have a metastatic adenocarcinoma. The patient's did an x-ray that shows increasing cavitating mass with likely worsening of underlying malignancy plus/minus component of a postobstructive pneumonia not entirely excluded. PLAN: 1. Will try to obtain sputum for Gram stain, culture and sensitivity. 2. Will keep the patient on Zosyn and vancomycin while waiting for the culture to finalize. 3. Depending upon the clinical response as well as cultures, will adjust medication further if needed. Thank you for this consultation. Will follow the patient with you. MMODL / IJN: [id number] /
[2017-04-01 20:51] LABS: Glucose,Whole Blood 163 mg/dL (75-99)
--- NOTE | 2017-04-01 21:43 | P.PN ---
Subjective Progress Note Date: 04/01/17 the patient is more alert, and appropriate. However, she continues to have issues with adequate recall. She remains somewhat short of breath even at rest. She denies any obvious bleeding, fever, chills, nausea or vomiting. Objective - Vital Signs Vital signs: Vital Signs Temp 97.6 F 04/01/17 15:29 Pulse 118 H 04/01/17 20:32 Resp 32 H 04/01/17 15:32 BP 127/97 04/01/17 15:29 Pulse Ox 93 L 04/01/17 15:29 Intake & Output 04/01/17 04/01/17 04/02/17 06:59 18:59 06:59 Intake Total 1368 Output Total 201 700 Balance -201 668 Weight 66.5 kg Intake: IV 810 Invasive Line 1 10 Sodium Chloride 0.9% 1, 800 000 ml @ 100 mls/hr IV . Q10H RUSTY Rx#:[id number] Oral 558 Output: Urine 200 700 Urine/Stool Mix 1 Other: Voiding Method Bedpan Bedpan Diaper Diaper Incontinent Incontinent # Voids 1 - Constitutional General appearance: Present: mild distress - EENT Eyes: Present: EOMI, PERRLA ENT: Present: hearing grossly normal, normal oropharynx - Respiratory Respiratory: right: CTA - Cardiovascular Rhythm: regular Heart sounds: normal: S1, S2 - Gastrointestinal General gastrointestinal: Present: normal bowel sounds, soft - Integumentary Integumentary: Present: normal - Neurologic Neurologic: Present: CNII-XII intact - Musculoskeletal Musculoskeletal: Present: generalized weakness, strength equal bilaterally - Psychiatric Psychiatric: Present: A&O x's 3 - Labs CBC & Chem 7: 04/01/17 06:02 04/01/17 06:02 Labs: Abnormal Lab Results - Last 24 Hours (Table) 04/01/17 04/01/17 04/01/17 Range/Units 05:54 06:02 06:02 WBC 18.5 H (3.8-10.6) k/uL RBC 3.40 L (3.80-5.40) m/uL Hgb 8.9 L D (11.4-16.0) gm/dL Hct 29.1 L (34.0-46.0) % MCHC 30.5 L (31.0-37.0) g/dL Neutrophils # 16.3 H (1.3-7.7) k/uL Chloride 111 H (98-107) mmol/L Carbon Dioxide 20 L (22-30) mmol/L BUN 24 H (7-17) mg/dL Glucose 130 H (74-99) mg/dL POC Glucose (mg/dL) 131 H (75-99) mg/dL Calcium 10.8 H (8.4-10.2) mg/dL Total Bilirubin 0.1 L (0.2-1.3) mg/dL AST 39 H (14-36) U/L ALT 80 H (9-52) U/L Alkaline Phosphatase 212 H (38-126) U/L Total Protein 5.2 L (6.3-8.2) g/dL Albumin 2.4 L (3.5-5.0) g/dL 04/01/17 04/01/17 04/01/17 Range/Units 11:59 12:06 16:44 WBC (3.8-10.6) k/uL RBC (3.80-5.40) m/uL Hgb (11.4-16.0) gm/dL Hct (34.0-46.0) % MCHC (31.0-37.0) g/dL Neutrophils # (1.3-7.7) k/uL Chloride (98-107) mmol/L Carbon Dioxide (22-30) mmol/L BUN (7-17) mg/dL Glucose (74-99) mg/dL POC Glucose (mg/dL) 132 H 129 H 165 H (75-99) mg/dL Calcium (8.4-10.2) mg/dL Total Bilirubin (0.2-1.3) mg/dL AST (14-36) U/L ALT (9-52) U/L Alkaline Phosphatase (38-126) U/L Total Protein (6.3-8.2) g/dL Albumin (3.5-5.0) g/dL 04/01/17 Range/Units 20:49 WBC (3.8-10.6) k/uL RBC (3.80-5.40) m/uL Hgb (11.4-16.0) gm/dL Hct (34.0-46.0) % MCHC (31.0-37.0) g/dL Neutrophils # (1.3-7.7) k/uL Chloride (98-107) mmol/L Carbon Dioxide (22-30) mmol/L BUN (7-17) mg/dL Glucose (74-99) mg/dL POC Glucose (mg/dL) 163 H (75-99) mg/dL Calcium (8.4-10.2) mg/dL Total Bilirubin (0.2-1.3) mg/dL AST (14-36) U/L ALT (9-52) U/L Alkaline Phosphatase (38-126) U/L Total Protein (6.3-8.2) g/dL Albumin (3.5-5.0) g/dL Microbiology - Last 24 Hours (Table) 03/30/17 23:08 Blood Culture - Preliminary Blood No Growth after 24 hours Assessment and Plan (1) Acute respiratory failure Narrative/Plan: the patient is partially improved with ongoing treatment, though she still remains somewhat short of breath at rest. Defer to the admitting service and other consultants will continue treatment. this is multifactorial, due to progression of her cancer, as well as a degree of pulmonary vascular congestion Current Visit: Yes Status: Acute Code(s): J96.00 - ACUTE RESPIRATORY FAILURE , UNSP W HYPOXIA OR HYPERCAPNIA SNOMED Code(s): 30913403 (2) Hypercalcemia of malignancy Narrative/Plan: this is improved with pamidronate and IV hydration. As a result, the patient is mentally clearer. Continue to follow with ongoing hydration Current Visit: Yes Status: Acute Priority: High Code(s): E83.52 - HYPERCALCEMIA SNOMED Code(s): 87233213 (3) Lung cancer Narrative/Plan: the patient has had significant difficulty with recalling prior recommendations. As noted in the HPI, she has previously refused chemotherapy and radiation. She would be a candidate for first-line immune therapy, based on height PD-L1 expression. When contacted by the office, she had stated that she would get back to us but had not done so. I again discussed treatment options with her, in the presence of her ex- . She confirmed that she did not want chemotherapy and radiation. To me , she stated that she would be willing for the immunotherapy. She could not recall being contacted by the office previously. I did advise her, that brain metastasis would not necessarily be treated effectively by the immunotherapy. Therefore the standard of care for them would be brain radiation. it would obviously not be appropriate to treat the rest of the body while leaving brain malignancy untreated. At this point, she stated that she would like to discuss the issue further with her son. Her ex- stated that the son could be available tomorrow around known. Therefore it was decided to set up a family meeting between approximately 12 and 1. Current Visit: Yes Status: Acute Priority: High Code(s): C34.90 - MALIGNANT NEOPLASM OF UNSP PART OF UNSP BRONCHUS OR LUNG SNOMED Code(s): 741398360
[2017-04-01] MEDS: LOSARTAN 25 MG TAB PO SCH (22:19)
[2017-04-01] MEDS: RIVAROXABAN 10 MG TAB PO SCH (22:19)
[2017-04-02] MEDS: methylPREDNISolone SOD SUCCI 40 MG/ML 1 ML VIAL IV SCH ×3 (00:06→23:58)
[2017-04-02] MEDS: PIPERACILLIN-TAZOBACTAM 3.375 GM in DEXTROSE/WATER 1 50ML.BAG IVPB SCH ×3 (00:06→17:04)
[2017-04-02] MEDS: SODIUM CHLORIDE 0.9% 1,000 ML IV SCH ×3 (00:07→23:59)
[2017-04-02] MEDS: ALPRAZolam 0.25 MG TAB PO PRN ×3 (00:29→14:03)
[2017-04-02] MEDS: IPRATROPIUM-ALBUTEROL 3 ML NEB INHALATION PRN ×5 (04:28→20:37)
[2017-04-02 06:09] LABS: Glucose,Whole Blood 126 mg/dL (75-99)
[2017-04-02 06:22] LABS: Anisocytosis Slight; Basophils % (A) 0 %; CH 25.7; CHCM 30.2; Eosinophils # (A) 0.1 k/uL (0-0.7); Eosinophils % (A) 0 %; HCT 30.5 % (34.0-46.0); HDW 3.26; HGB 9.3 gm/dL (11.4-16.0); Hypochromasia Marked; Luc # (Auto) 0.15; Luc % (Auto) 1; Lymphocytes # (A) 0.9 k/uL (1.0-4.8); Lymphocytes % (A) 5 %; MCHC 30.6 g/dL (31.0-37.0); MCV 85.2 fL (80.0-100.0); Mean Platelet Volume 9.1; Monocytes # (A) 1.1 k/uL (0-1.0); Monocytes % (A) 7 %; Neutrophils # (A) 13.9 k/uL (1.3-7.7); Neutrophils % (A) 87 %; RBC 3.58 m/uL (3.80-5.40); RDW 16.5 % (11.5-15.5); WBC 16.1 k/uL (3.8-10.6); WBC (Perox) 18.27
[2017-04-02 06:31] LABS: ALT 106 U/L (9-52); AST 49 U/L (14-36); Alkaline Phosphatase 234 U/L (38-126); Anion Gap 7 mmol/L; Blood Urea Nitrogen 22 mg/dL (7-17); Carbon Dioxide 21 mmol/L (22-30); Chloride 112 mmol/L (98-107); Glucose 130 mg/dL (74-99); Magnesium 1.8 mg/dL (1.6-2.3); Non-African American GFR(MDRD) >60 (>60 ml/min/1.73 sqM); Potassium 4.2 mmol/L (3.5-5.1); Sodium 140 mmol/L (137-145); Total Bilirubin 0.2 mg/dL (0.2-1.3); Total Protein 5.7 g/dL (6.3-8.2)
[2017-04-02] MEDS: INSULIN ASPART 100 UNIT/ML 1 ML 10 ML VIAL SQ SCH ×4 (06:51→23:59)
[2017-04-02] MEDS: PANTOPRAZOLE 40 MG TABLET PO SCH (06:53)
[2017-04-02] MEDS: MORPHINE SULFATE ER 15 MG TABLET PO SCH (07:09)
[2017-04-02] MEDS: SYMBICORT 160-4.5 MCG INHALER INHALATION SCH ×2 (07:27→20:37)
[2017-04-02] MEDS: AMITRIPTYLINE HCL 25 MG TAB PO SCH (08:28)
[2017-04-02] MEDS: METOPROLOL TARTRATE 25 MG TAB PO SCH ×2 (08:28→23:58)
[2017-04-02] MEDS: guaiFENesin 600 MG TABLET.ER PO SCH ×2 (08:28→23:58)
[2017-04-02] MEDS: ASPIRIN 81 MG PO SCH (08:28)
[2017-04-02] MEDS: ATORVASTATIN 40 MG TAB PO SCH (08:28)
[2017-04-02] MEDS: HYDROmorphone 0.5 MG/0.5 ML SYRINGE IVP PRN ×2 (08:42→14:04)
--- NOTE | 2017-04-02 11:37 | P.PN ---
Subjective Progress Note Date: 04/02/17 This is a 66-year-old female patient with a known history of chronic obstructive pulmonary disease, DVT, hypertension, severe peripheral vascular disease with previous femoral bypass surgery and toe amputations. She was recently diagnosed with adenocarcinoma, stage IV lung cancer. She had been originally diagnosed in [facility]. A PET scan from January of this year revealed a large right lower lobe cavitary neoplasm with contralateral pulmonary metastasis, supraclavicular adenopathy in distant metastasis within the axial skeleton and left femur. A MRI of the brain revealed multiple enhancing nodules suggestive of metastasis. There is also noted calvarial lesions involving the left parietal calvarium. She was seen and evaluated while here as an inpatient one month ago by Dr. Ortiz for a COPD exacerbation. There is also some postobstructive pneumonia secondary to the lung cancer. She was treated and subsequent discharge home on 03/02/2017. The patient was to follow-up with Dr. Hoang in biomarkers were pending. She represented here to the emergency room yesterday with complaints of lower extremity pain and discoloration. A CT angiogram of the thoracic and abdominal aorta revealed atherosclerotic vascular disease. 4 cm aneurysm of the thoracic aorta. No evidence of dissection. 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 There is patency of the previous femoral-femoral artery bypass graft. The left femoral arteries filled from the bypass graft. Dopplers of the bilateral lower extremities were negative for DVT. The patient is on Xarelto in the outpatient setting. The patient also had complaints of increasing shortness of breath and we are consulted for the same. Her chest x-ray does reveal the large cavitating mass in the right mid lung that is slightly increased in size compared to previous in February 2017. There is new pulmonary vascular congestion consistent with congestive heart failure. Lymphatics attic metastatic disease cannot be excluded. There is a small right pleural effusion. Current white count 17.2. Hemoglobin 11.7. D-dimer 11.73. Creatinine 0.90. Calcium 13.2. ALT 96, alk phos 317. Troponin negative. ProBNP 316. She is currently afebrile. Maintaining O2 saturations in the mid 90s on 3 L/m per nasal cannula. Hemodynamically stable. She has been initiated on bronchodilators, Symbicort, IV Solu-Medrol. She is on vancomycin and Zosyn. She is currently awake. She is somewhat slow to respond. She currently denies any worsening shortness of breath. She has a loose nonproductive cough. The patient is seen again today 04/01/2017 in follow-up on the selective care unit. She is slightly more alert and oriented today as compared to yesterday. Her calcium has improved currently at 10.8. She has been seen by medical oncology and the patient has been offered immunotherapy if she and her son agree. They've also been offered palliative radiation treatment to the bone and brain. Again awaiting further discussion with the family. Presently, she denies any worsening shortness of breath, cough or congestion. She is maintaining good O2 saturations in the 90s on 3 L/m per nasal cannula. She's been afebrile. Hemodynamically stable. White count 18.5. Hemoglobin 8.9. AST of 39 ALT of 80 alk phos 212. She has been seen by Dr. Sadler who feels there is no need for any surgical intervention regarding her lower extremity vascular changes. The patient is seen again today 04/02/2017 in follow-up on the selective care unit. She is currently awake and alert. She still has some recall issues. She has been having increasing shortness of breath cough and congestion. She is now on 10 L high flow nasal cannula to maintain O2 saturations in the 90s. She is stating that she does not want to continue with any interventions at all. She does seem interested in hospice. There is a meeting with oncology and the patient's son and ex- today at noon. Objective - Vital Signs Vital signs: Vital Signs Temp 97.3 F L 04/02/17 08:50 Pulse 104 H 04/02/17 08:51 Resp 20 04/02/17 08:51 BP 154/87 04/02/17 08:50 Pulse Ox 94 L 04/02/17 08:50 Intake & Output 04/01/17 04/02/17 04/02/17 18:59 06:59 18:59 Intake Total 1368 100 Output Total 700 300 Balance 668 -300 100 Weight 67 kg Intake: IV 810 Invasive Line 1 10 Sodium Chloride 0.9% 1, 800 000 ml @ 100 mls/hr IV . Q10H RUSTY Rx#:[id number] Oral 558 100 Output: Urine 700 300 Other: Voiding Method Bedpan Bedpan Bedpan Diaper Diaper Diaper Incontinent Incontinent Incontinent # Voids 1 1 - Exam GENERAL EXAM: Alert, fairly comfortable in no apparent distress. HEAD: Normocephalic. EYES: Normal reaction of pupils, equal size. NOSE: Clear with pink turbinates. THROAT: No erythema or exudates. NECK: No masses, no JVD. CHEST: No chest wall deformity. LUNGS: Equal air entry with scattered rhonchi, crackles in the posterior bases more so on the right lung. Diminished. CVS: S1 and S2 normal with no audible murmur, regular rhythm. ABDOMEN: No hepatosplenomegaly, normal bowel sounds, no guarding or rigidity. SPINE: No scoliosis or deformity SKIN: No rashes CENTRAL NERVOUS SYSTEM: No focal deficits, tone is normal in all 4 extremities. EXTREMITIES: There is no peripheral edema. No clubbing, no cyanosis. Peripheral pulses are intact. - Labs CBC & Chem 7: 04/02/17 06:03 04/02/17 06:03 Labs: Abnormal Lab Results - Last 24 Hours (Table) 04/01/17 04/01/17 04/01/17 Range/Units 11:59 12:06 16:44 WBC (3.8-10.6) k/uL RBC (3.80-5.40) m/uL Hgb (11.4-16.0) gm/dL Hct (34.0-46.0) % MCHC (31.0-37.0) g/dL RDW (11.5-15.5) % Neutrophils # (1.3-7.7) k/uL Lymphocytes # (1.0-4.8) k/uL Monocytes # (0-1.0) k/uL Chloride (98-107) mmol/L Carbon Dioxide (22-30) mmol/L BUN (7-17) mg/dL Glucose (74-99) mg/dL POC Glucose (mg/dL) 132 H 129 H 165 H (75-99) mg/dL AST (14-36) U/L ALT (9-52) U/L Alkaline Phosphatase (38-126) U/L Total Protein (6.3-8.2) g/dL Albumin (3.5-5.0) g/dL 04/01/17 04/02/17 04/02/17 Range/Units 20:49 06:03 06:03 WBC 16.1 H (3.8-10.6) k/uL RBC 3.58 L (3.80-5.40) m/uL Hgb 9.3 L (11.4-16.0) gm/dL Hct 30.5 L (34.0-46.0) % MCHC 30.6 L (31.0-37.0) g/dL RDW 16.5 H (11.5-15.5) % Neutrophils # 13.9 H (1.3-7.7) k/uL Lymphocytes # 0.9 L (1.0-4.8) k/uL Monocytes # 1.1 H (0-1.0) k/uL Chloride 112 H (98-107) mmol/L Carbon Dioxide 21 L (22-30) mmol/L BUN 22 H (7-17) mg/dL Glucose 130 H (74-99) mg/dL POC Glucose (mg/dL) 163 H (75-99) mg/dL AST 49 H (14-36) U/L ALT 106 H (9-52) U/L Alkaline Phosphatase 234 H (38-126) U/L Total Protein 5.7 L (6.3-8.2) g/dL Albumin 2.6 L (3.5-5.0) g/dL 04/02/17 Range/Units 06:07 WBC (3.8-10.6) k/uL RBC (3.80-5.40) m/uL Hgb (11.4-16.0) gm/dL Hct (34.0-46.0) % MCHC (31.0-37.0) g/dL RDW (11.5-15.5) % Neutrophils # (1.3-7.7) k/uL Lymphocytes # (1.0-4.8) k/uL Monocytes # (0-1.0) k/uL Chloride (98-107) mmol/L Carbon Dioxide (22-30) mmol/L BUN (7-17) mg/dL Glucose (74-99) mg/dL POC Glucose (mg/dL) 126 H (75-99) mg/dL AST (14-36) U/L ALT (9-52) U/L Alkaline Phosphatase (38-126) U/L Total Protein (6.3-8.2) g/dL Albumin (3.5-5.0) g/dL Microbiology - Last 24 Hours (Table) 03/30/17 23:08 Blood Culture - Preliminary Blood No Growth after 48 hours 04/01/17 15:13 Gram Stain - Preliminary Sputum Assessment and Plan Assessment: Impression: #1 Lower extremity pain and discomfort in a patient with a known history of severe peripheral vascular occlusive disease. CT angiogram of the thoracic and abdominal aorta revealed a 4 cm aortic aneurysm of the thoracic aorta. No evidence of dissection. Complete occlusion of the left common iliac artery. There is patency of the femoral-femoral bypass graft with left femoral artery filling from the bypass graft. Dopplers of the bilateral lower extremities are negative. Remains on Xarelto. #2 Acute exacerbation of chronic obstructive pulmonary disease. #3 Large increasing mass in the right mid lung. Stage IV adenocarcinoma. Lymphangitic metastatic disease is not excluded. Suspect postobstructive pneumonia. #4 Acute on chronic hypoxic respiratory failure secondary to above. 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 #6 Metastasis to the brain. #7 Severe peripheral vascular occlusive disease with previous fem-fem bypass with revisions and previous thrombectomy. #8 Thoracic aortic aneurysm, stable compared to previous. #9 History of chronic tobacco dependence. #10 History of DVT. #11 Hypertension. #12 Poor overall functional performance based on the above-mentioned multiple comorbidities. Plan: The patient was seen and evaluated by Dr. Kerr. The patient's pulmonary status has worsened today as compared to yesterday. She is currently on 10 L of high flow nasal cannula to maintain O2 saturations into the 90s. There is a meeting today with her the patient her family and oncology at noon. She may choose to go into hospice care. She and her son will inform us of their decisions. In the interim, we'll continue with supportive care. She is a DO NOT INTUBATE CODE STATUS. We will continue to follow and make further recommendations based on her clinical status. I, the cosigning physician, have performed a history and physical examination on the patient. Lung sounds have scattered rhonchi bilaterally, crackles in the posterior bases more so on the right lung.. Maintaining O2 saturations in the 90s on 10 L of high flow nasal cannula. I have discussed the assessment and plan of care with my nurse practitioner, Nicole Miguel. I attest the above documented note as dictated by her.
[2017-04-02 11:48] LABS: Glucose,Whole Blood 121 mg/dL (75-99)
[2017-04-02] MEDS ORDERED: VANCOMYCIN TROUGH DUE 1 EACH MISC MISCELLANE ONE (13:00)
--- NOTE | 2017-04-02 13:23 | P.PN ---
Subjective Principal diagnosis: Progressive dyspnea patient is still complaining of shortness of breath today. Objective - Vital Signs Vital signs: Vital Signs Temp 97.3 F L 04/02/17 08:50 Pulse 110 H 04/02/17 11:30 Resp 20 04/02/17 08:51 BP 154/87 04/02/17 08:50 Pulse Ox 94 L 04/02/17 08:50 Intake & Output 04/01/17 04/02/17 04/02/17 18:59 06:59 18:59 Intake Total 1368 100 Output Total 700 300 Balance 668 -300 100 Weight 67 kg Intake: IV 810 Invasive Line 1 10 Sodium Chloride 0.9% 1, 800 000 ml @ 100 mls/hr IV . Q10H RUSTY Rx#:[id number] Oral 558 100 Output: Urine 700 300 Other: Voiding Method Bedpan Bedpan Bedpan Diaper Diaper Diaper Incontinent Incontinent Incontinent # Voids 1 1 - Exam General: The patient is awake and alert, in no distress Eye: there is normal conjunctiva bilaterally. Neck: The neck is supple, there is no JVD. Cardiovascular: Normal S1-S2, no S3-S4, no murmurs. Respiratory: Lungs with diffuse rhonchi all over the chest Gastrointestinal: Abdomen is soft, nontender Musculoskeletal: There is no pedal edema. Neurological:. Speech is normal. Skin: Skin is warm and dry - Labs CBC & Chem 7: 04/02/17 06:03 04/02/17 06:03 Labs: Abnormal Lab Results - Last 24 Hours (Table) 04/01/17 04/01/17 04/02/17 Range/Units 16:44 20:49 06:03 WBC 16.1 H (3.8-10.6) k/uL RBC 3.58 L (3.80-5.40) m/uL Hgb 9.3 L (11.4-16.0) gm/dL Hct 30.5 L (34.0-46.0) % MCHC 30.6 L (31.0-37.0) g/dL RDW 16.5 H (11.5-15.5) % Neutrophils # 13.9 H (1.3-7.7) k/uL Lymphocytes # 0.9 L (1.0-4.8) k/uL Monocytes # 1.1 H (0-1.0) k/uL Chloride (98-107) mmol/L Carbon Dioxide (22-30) mmol/L BUN (7-17) mg/dL Glucose (74-99) mg/dL POC Glucose (mg/dL) 165 H 163 H (75-99) mg/dL AST (14-36) U/L ALT (9-52) U/L Alkaline Phosphatase (38-126) U/L Total Protein (6.3-8.2) g/dL Albumin (3.5-5.0) g/dL 04/02/17 04/02/17 04/02/17 Range/Units 06:03 06:07 11:39 WBC (3.8-10.6) k/uL RBC (3.80-5.40) m/uL Hgb (11.4-16.0) gm/dL Hct (34.0-46.0) % MCHC (31.0-37.0) g/dL RDW (11.5-15.5) % Neutrophils # (1.3-7.7) k/uL Lymphocytes # (1.0-4.8) k/uL Monocytes # (0-1.0) k/uL Chloride 112 H (98-107) mmol/L Carbon Dioxide 21 L (22-30) mmol/L BUN 22 H (7-17) mg/dL Glucose 130 H (74-99) mg/dL POC Glucose (mg/dL) 126 H 121 H (75-99) mg/dL AST 49 H (14-36) U/L ALT 106 H (9-52) U/L Alkaline Phosphatase 234 H (38-126) U/L Total Protein 5.7 L (6.3-8.2) g/dL Albumin 2.6 L (3.5-5.0) g/dL Microbiology - Last 24 Hours (Table) 03/30/17 23:08 Blood Culture - Preliminary Blood No Growth after 48 hours 04/01/17 15:13 Gram Stain - Preliminary Sputum Assessment and Plan Assessment: 1. Acute COPD exacerbation 2. Underlying pneumonia suspected postobstructive: Blood and sputum culture pending. Continue broad spectrum antibiotic. Infectious disease following. 3. Stage IV adenocarcinoma of the lung with metastatic disease to the bone and the brain. Did not receive any treatment as of yet. She was seen and evaluated by oncology. Awaiting final plan for treatment 4. Essential hypertension: Blood pressure well controlled 5. Severe peripheral vascular disease with prior fem-fem bypass of the left lower extremity well-known to Dr. Sadler. 6. History of superficial phlebitis involving the greater saphenous vein on anticoagulation with Rivaroxaban per vascular surgery recommendations Today, and reviewed her medication list lab work results. Prognosis is guarded. Patient is DO NOT RESUSCITATE/DO NOT INTUBATE. We will continue broad -spectrum antibiotic. Pain control. Repeat lab work in the morning. - Awaiting recommendation from radiation oncology to start radiation treatment for brain metastasis - Patient is a candidate for immunotherapy as discussed with oncology that need to be in conjunction with radiation therapy to the brain - Check oxygen level on room air at rest and ambulation, order home O2 if patient qualifies - Wean off IV steroids within the next day or 2 and switch to prednisone
[2017-04-02] MEDS: CILOSTAZOL 100 MG TAB PO SCH (14:03)
[2017-04-02] MEDS: VANCOMYCIN 1,250 MG in SODIUM CHLORIDE 0.9% 250 ML IVPB SCH (14:04)
--- NOTE | 2017-04-02 15:06 | P.CONS ---
History of Present Illness - Reason for Consult Consult date: 04/02/17 Lung cancer with brain metastasis Requesting physician: Darryl Manning - Chief Complaint 'I have brain lesions." - History of Present Illness Stephanie Jo is a 66-year-old female patient with adenocarcinoma of right lung. They are established with Dr. Loza of radiation oncology and were evaluated by him on 02/18/17. Her Staging work up including PET scan on 02/23/17 demonstrated the known right lower lobe mass measuring 8.6 cm in greatest dimension w. There were small satellite nodules and a left apical nodule which were subcentimeter. There was lymphadenopathy in the hilum and mediastinum. The osseous structures showed multiple lesions, including the sternum, cervical and thoracic vertebral bodies, bony pelvis, and left femur. MRI from 02/27/17 showed multiple subcentimeter lesions throughout the brain with associated edema. The largest lesions measured 3 mm and occupy the right temporal, right parietal, and left temporal lobes. There was also a 2 mm lesion in the left frontal lobe and a 1 mm lesion in the left parietal lobe. These findings were consistent with multifocal brain metastasis. On 02/25/17, she presented to the [facility] for difficulty with breathing. Diagnostic workup included a chest x-ray. The chest x-ray showed a known mass and adenopathy in the chest. The patient had cardiopulmonary monitoring which was subsequently normal and no acute findings were diagnosed. She was treated with best supportive care including respiratory support, antibiotic therapy, and discharged in stable condition. She met with Dr. Hoang of Medical Oncology in consultation on 03/03/17 to discuss treatment options regarding metastatic lung adenocarcinoma. The patient has declined chemotherapy and radiation therapy. INTERVAL HISTORY: Stephanie has been again readmitted for shortness of breathe. In the interim since our last visit [facility] testing returned and found her to have a PDL1 status of 90% making her eligable for immunotherapy as first line. Dr. Manning discussed this treatment option with both her and her son who have agreed to pursue additional treatment. She will require managment of her brain metastasis. On todays visit her [facility] recall is poor. Her short term memory is appropriate. She is A&Ox3 with no headaches, vision changes, balance problems, or new onset confusion. She has been without seizures or focal muscle weakness. Review of Systems Constitutional: Denies chills, Denies fever Ears, nose, mouth and throat: Reports as per HPI Cardiovascular: Reports dyspnea on exertion, Reports leg edema, Reports lightheadedness, Reports palpitations Respiratory: Reports dyspnea Past Medical History Past Medical History: Cancer, COPD, Deep Vein Thrombosis (DVT), Hypertension Additional Past Medical History / Comment(s): Stage IV metastatic lung cancer History of Any Multi-Drug Resistant Organisms: None Reported Additional Past Surgical History / Comment(s): Femoral bypass, toe amputation, cervical infusion, tubal ligation Past Anesthesia/Blood Transfusion Reactions: No Reported Reaction Past Psychological History: No Psychological Hx Reported Smoking Status: Former smoker Past Alcohol Use History: None Reported Past Drug Use History: Marijuana - Past Family History Mother History Unknown: Yes Family Medical History: Cancer, Deep Vein Thrombosis (DVT) Additional Family Medical History / Comment(s): Lung Cancer Father Family Medical History: Cancer Additional Family Medical History / Comment(s): Lung Cancer Medications and Allergies Home Medications Medication Instructions Recorded Confirmed Type Atorvastatin [Lipitor] 40 mg PO DAILY 02/25/17 03/30/17 History Cilostazol [Pletal] 50 mg PO BID 02/25/17 03/30/17 History Metoprolol Tartrate [Lopressor] 25 mg PO BID 02/25/17 03/30/17 History Budesonide-Formot 160-4.5 Mcg 2 puff INHALATION RT-BID #1 inhaler 03/02/1703/30 Rx [Symbicort 160-4.5 Mcg Inhaler] Ipratropium-Albuterol Nebulize 3 ml INHALATION RT-QID PRN #120 03/02/17 Rx [Duoneb 0.5 mg-3 mg/3 ml Soln] ampul.neb Albuterol Inhaler [Ventolin Hfa 2 puff INHALATION RT-Q4H PRN 03/30/17 03/30/17 History Inhaler] Amitriptyline HCl [Elavil] 25 mg PO DAILY 03/30/17 03/30/17 History Aspirin EC [Ecotrin Low Dose] 81 mg PO DAILY 03/30/17 03/30/17 History Ergocalciferol (Vitamin D2) 50,000 unit PO VELA 03/30/17 03/30/17 History [Vitamin D2] Lisinopril [Zestril] 5 mg PO DAILY 03/30/17 03/30/17 History Losartan [Cozaar] 25 mg PO HS 03/30/17 03/30/17 History Morphine Sulfate [Ms Contin] 15 mg PO BID 03/30/17 03/30/17 History Omeprazole 20 mg PO DAILY 03/30/17 03/30/17 History Rivaroxaban [Xarelto] 20 mg PO HS 03/30/17 03/30/17 History guaiFENesin [Mucinex] 1,200 mg PO BID 03/30/17 03/30/17 History Allergies Allergy/AdvReac Type Severity Reaction Status Date / Time No Known Allergies Allergy Verified 03/30/17 18:31 Physical Exam Vitals: Vital Signs Temp Pulse Pulse Pulse Resp BP BP 04/02/17 11:40 110 H 04/02/17 11:30 110 H 04/02/17 08:51 104 H 20 04/02/17 08:50 97.3 F L 104 H 20 154/87 04/02/17 07:39 109 H 04/02/17 07:29 109 H 20 04/02/17 04:36 99 04/02/17 04:29 95 04/02/17 02:34 80 22 04/02/17 00:00 97.2 F L 87 87 22 153/82 04/01/17 20:32 118 H 04/01/17 20:22 115 H 04/01/17 20:00 97.9 F 96 18 142/69 04/01/17 16:02 119 H 04/01/17 15:49 118 H 04/01/17 15:32 122 H 32 H 04/01/17 15:29 97.6 F 122 H 32 H 127/97 Pulse Ox 04/02/17 11:40 04/02/17 11:30 04/02/17 08:51 04/02/17 08:50 94 L 04/02/17 07:39 04/02/17 07:29 96 04/02/17 04:36 04/02/17 04:29 04/02/17 02:34 04/02/17 00:00 93 L 04/01/17 20:32 04/01/17 20:22 04/01/17 20:00 94 L 04/01/17 16:02 04/01/17 15:49 04/01/17 15:32 04/01/17 15:29 93 L Intake and Output 04/01/17 04/02/17 04/02/17 22:59 06:59 14:59 Intake Total 1010 100 Output Total 300 Balance 1010 -300 100 Intake: IV 810 Invasive Line 1 10 Sodium Chloride 0.9% 1, 800 000 ml @ 100 mls/hr IV . Q10H RUSTY Rx#:[id number] Oral 200 100 Output: Urine 300 Other: Voiding Method Bedpan Bedpan Bedpan Diaper Diaper Diaper Incontinent Incontinent Incontinent # Voids 1 1 Weight 67 kg - Constitutional General appearance: morbidly obese - EENT Eyes: PERRLA, normal appearance - Neck Neck: normal ROM - Respiratory Respiratory: right: diminished, bilateral: prolonged expiration - Gastrointestinal General gastrointestinal: normal bowel sounds Results CBC & Chem 7: 04/02/17 06:03 04/02/17 06:03 Labs: Abnormal Lab Results - Last 24 Hours (Table) 04/01/17 04/01/17 04/02/17 Range/Units 16:44 20:49 06:03 WBC 16.1 H (3.8-10.6) k/uL RBC 3.58 L (3.80-5.40) m/uL Hgb 9.3 L (11.4-16.0) gm/dL Hct 30.5 L (34.0-46.0) % MCHC 30.6 L (31.0-37.0) g/dL RDW 16.5 H (11.5-15.5) % Neutrophils # 13.9 H (1.3-7.7) k/uL Lymphocytes # 0.9 L (1.0-4.8) k/uL Monocytes # 1.1 H (0-1.0) k/uL Chloride (98-107) mmol/L Carbon Dioxide (22-30) mmol/L BUN (7-17) mg/dL Glucose (74-99) mg/dL POC Glucose (mg/dL) 165 H 163 H (75-99) mg/dL AST (14-36) U/L ALT (9-52) U/L Alkaline Phosphatase (38-126) U/L Total Protein (6.3-8.2) g/dL Albumin (3.5-5.0) g/dL 04/02/17 04/02/17 04/02/17 Range/Units 06:03 06:07 11:39 WBC (3.8-10.6) k/uL RBC (3.80-5.40) m/uL Hgb (11.4-16.0) gm/dL Hct (34.0-46.0) % MCHC (31.0-37.0) g/dL RDW (11.5-15.5) % Neutrophils # (1.3-7.7) k/uL Lymphocytes # (1.0-4.8) k/uL Monocytes # (0-1.0) k/uL Chloride 112 H (98-107) mmol/L Carbon Dioxide 21 L (22-30) mmol/L BUN 22 H (7-17) mg/dL Glucose 130 H (74-99) mg/dL POC Glucose (mg/dL) 126 H 121 H (75-99) mg/dL AST 49 H (14-36) U/L ALT 106 H (9-52) U/L Alkaline Phosphatase 234 H (38-126) U/L Total Protein 5.7 L (6.3-8.2) g/dL Albumin 2.6 L (3.5-5.0) g/dL Microbiology - Last 24 Hours (Table) 04/01/17 15:13 Gram Stain - Preliminary Sputum Sputum Culture - Preliminary Gram Neg Bacilli 03/30/17 23:08 Blood Culture - Preliminary Blood No Growth after 48 hours Assessment and Plan Assessment: 66-year-old female patient with an adenocarcinoma originating from the right lower lobe who is treatment naive with metastatic disease to the brain. Plan: I had a lengthy discussion with the patient and her son regarding her diagnosis , recent diagnostic workup, and her current symptoms. The patient would like to pursue additional therapy after her discussion with Dr. Manning. I did discuss this case with Dr. Loza her treating radiation oncologist. He has expressed interest to re-evaluate the [facility] with an MRI of the brain to allow consideration for radiosurgery if her lesions appear limited. I have scheduled a followup for Stephanie on 04/08/17 at 10:30 am to further discuss the treatment options of whole brain radiation vs radiosurgery dependent on re-evaluation of her brain with MRI. Stephanie and her son expressed understanding.
[2017-04-02 16:56] LABS: Glucose,Whole Blood 139 mg/dL (75-99)
--- NOTE | 2017-04-02 18:48 | MR ---
EXAMINATION TYPE: MR brain wo/w con DATE OF EXAM: 04/02/2017 COMPARISON: 02/27/2017 HISTORY: Pt haveing difficulty breathing did Fast Protocol brain metastases TECHNIQUE: Multiplanar, multisequence images of the brain and brainstem is performed without and with IV contras t, utilizing 7 mL intravenous Gadavist . FINDINGS: On the FLAIR and T2 images there are numerous foci of increased signal at the bucio-white ma tter junction of both cerebral hemispheres. These measure up to 7 mm. Total number is less than 10. T here is a 2 cm area of cortical increased signal in the anterior right temporal lobe. There is a 7 mm nodular focus of enhancement in the right anterior temporal lobe. There is a 5 mm focus of enhanceme nt in the medial left anterior temporal lobe. This also shows increased signal on the FLAIR images. T here is a 3 mm focus of enhancement in the left occipital lobe at the bucio-white matter junction. Thi s shows a larger area of increased signal on the FLAIR images. There is no midline shift. There is no sign of intracranial hemorrhage. Sella turcica appears normal. The globes appear normal. There is no evidence of orbital mass. Brainst em appears intact. IMPRESSION: There are 3 nodular areas of enhancement in the right temporal, left occipital, left temp oral lobes with surrounding edema consistent with metastatic disease. These appear increased compared to last exam. Multiple white matter high signal foci without enhancement are consistent with foci of microvascular ischemia or demyelinating disease.
[2017-04-02 20:58] LABS: Glucose,Whole Blood 138 mg/dL (75-99)
--- NOTE | 2017-04-02 23:43 | P.PN ---
Subjective Progress Note Date: 04/02/17 the patient remains short of breath, possibly slightly worse than yesterday. She appears to be alert and oriented, but recall remains poor. She denies any headache or visual complaints at this time. No history of any nausea or vomiting. She continues to have lower extremity discomfort. Objective - Vital Signs Vital signs: Vital Signs Temp 97 F L 04/02/17 20:00 Pulse 108 H 04/02/17 20:46 Resp 26 H 04/02/17 20:00 BP 132/67 04/02/17 20:00 Pulse Ox 93 L 04/02/17 20:00 Intake & Output 04/02/17 04/02/17 04/03/17 06:59 18:59 06:59 Intake Total 600 Output Total 300 Balance -300 600 Weight 67 kg Intake: Intake, IV Titration 300 Amount Piperacillin-Tazobactam 3 50 .375 gm In Dextrose/Water 1 50ml.bag @ 12.5 mls/hr IVPB Q8HR RUSTY Rx#: [id number] Vancomycin 1,250 mg In 250 Sodium Chloride 0.9% 250 ml @ 125 mls/hr IVPB Q12H RUSTY Rx#:[id number] Oral 300 Output: Urine 300 Other: Voiding Method Bedpan Bedpan Bedpan Diaper Diaper Diaper Incontinent Incontinent Incontinent # Voids 1 1 - Constitutional General appearance: Present: mild distress - EENT Eyes: Present: EOMI, PERRLA ENT: Present: hearing grossly normal, normal oropharynx - Respiratory Respiratory: bilateral: rales - Cardiovascular Rhythm: regular Heart sounds: normal: S1, S2 - Gastrointestinal General gastrointestinal: Present: normal bowel sounds, soft - Neurologic Neurologic: Present: CNII-XII intact - Musculoskeletal Musculoskeletal: Present: generalized weakness, strength equal bilaterally - Psychiatric Psychiatric: Present: A&O x's 3, appropriate affect - Labs CBC & Chem 7: 04/02/17 06:03 04/02/17 06:03 Labs: Abnormal Lab Results - Last 24 Hours (Table) 04/02/17 04/02/17 04/02/17 Range/Units 06:03 06:03 06:07 WBC 16.1 H (3.8-10.6) k/uL RBC 3.58 L (3.80-5.40) m/uL Hgb 9.3 L (11.4-16.0) gm/dL Hct 30.5 L (34.0-46.0) % MCHC 30.6 L (31.0-37.0) g/dL RDW 16.5 H (11.5-15.5) % Neutrophils # 13.9 H (1.3-7.7) k/uL Lymphocytes # 0.9 L (1.0-4.8) k/uL Monocytes # 1.1 H (0-1.0) k/uL Chloride 112 H (98-107) mmol/L Carbon Dioxide 21 L (22-30) mmol/L BUN 22 H (7-17) mg/dL Glucose 130 H (74-99) mg/dL POC Glucose (mg/dL) 126 H (75-99) mg/dL AST 49 H (14-36) U/L ALT 106 H (9-52) U/L Alkaline Phosphatase 234 H (38-126) U/L Total Protein 5.7 L (6.3-8.2) g/dL Albumin 2.6 L (3.5-5.0) g/dL 04/02/17 04/02/17 04/02/17 Range/Units 11:39 16:49 20:56 WBC (3.8-10.6) k/uL RBC (3.80-5.40) m/uL Hgb (11.4-16.0) gm/dL Hct (34.0-46.0) % MCHC (31.0-37.0) g/dL RDW (11.5-15.5) % Neutrophils # (1.3-7.7) k/uL Lymphocytes # (1.0-4.8) k/uL Monocytes # (0-1.0) k/uL Chloride (98-107) mmol/L Carbon Dioxide (22-30) mmol/L BUN (7-17) mg/dL Glucose (74-99) mg/dL POC Glucose (mg/dL) 121 H 139 H 138 H (75-99) mg/dL AST (14-36) U/L ALT (9-52) U/L Alkaline Phosphatase (38-126) U/L Total Protein (6.3-8.2) g/dL Albumin (3.5-5.0) g/dL Microbiology - Last 24 Hours (Table) 11/29/17 15:13 Gram Stain - Preliminary Sputum Sputum Culture - Preliminary Gram Neg Bacilli 03/30/17 23:08 Blood Culture - Preliminary Blood No Growth after 48 hours Assessment and Plan (1) Acute respiratory failure Narrative/Plan: the patient remained short of breath his respiratory status appearing slightly worse today. Oxygen requirement is higher. She continues on aerosols , antibiotic as well as steroids. pulmonary medicine is following. We'll defer to them and the admitting service for continued management. Current Visit: Yes Status: Acute Code(s): J96.00 - ACUTE RESPIRATORY FAILURE , UNSP W HYPOXIA OR HYPERCAPNIA SNOMED Code(s): 27818516 (2) Hypercalcemia of malignancy Narrative/Plan: this has resolved, with calcium level normal today. Current Visit: Yes Status: Acute Priority: High Code(s): E83.52 - HYPERCALCEMIA SNOMED Code(s): 63143909 (3) Lung cancer Narrative/Plan: I had a detailed discussion today with the patient, with her son as well as other family members at the bedside. We again discussed that her lung cancer is metastatic/stage IV. It is not curable and the objective of treatment is prolongation of life and palliation of symptoms. The patient does not want conventional chemotherapy. With her current performance status she is a questionable candidate for the same. Due to high PD-L1 expression, she is a candidate for first-line immunotherapy with Keytruda. however, she has known brain metastasis. The immunotherapy would not be reliable in treating brain metastasis. Therefore it would not be reasonable to proceed with the same, unless the brain metastasis are effectively managed. They were advised that the the standard of care would be radiation, either whole brain or potentially stereotactic, depending on the extent of disease. The type of radiation would be determined by radiation oncology. Side effects of brain radiation were briefly discussed and the patient and her family were advised that radiation oncology would be able to give them better information in this regard. The patient has seen Dr. Loza in the past, and had apparently refused radiation of the time. After detailed discussion, she and her family will be able to a consultation with radiation oncology to discuss options. The case was discussed with radiation oncology, and consult will be placed for them. during our discussion, she expressed a willingness to try the immunotherapy, if possible. the patient's prognosis remains guarded due to her respiratory status. If she continues to deteriorate despite ongoing aggressive management, it may not be possible to treat her from the oncology standpoint. Current Visit: Yes Status: Acute Priority: High Code(s): C34.90 - MALIGNANT NEOPLASM OF UNSP PART OF UNSP BRONCHUS OR LUNG SNOMED Code(s): 679214341
[2017-04-02] MEDS: RIVAROXABAN 10 MG TAB PO SCH (23:57)
[2017-04-02] MEDS: LOSARTAN 25 MG TAB PO SCH (23:58)
[2017-04-03] MEDS: VANCOMYCIN 1,250 MG in SODIUM CHLORIDE 0.9% 250 ML IVPB SCH ×2 (00:05→12:00)
[2017-04-03] MEDS: MORPHINE SULFATE ER 15 MG TABLET PO SCH ×2 (00:05→08:18)
[2017-04-03] MEDS: CILOSTAZOL 100 MG TAB PO SCH ×2 (00:06→08:18)
[2017-04-03] MEDS: ALPRAZolam 0.25 MG TAB PO PRN (01:02)
[2017-04-03] MEDS: HYDROmorphone 0.5 MG/0.5 ML SYRINGE IVP PRN ×4 (01:21→16:49)
[2017-04-03] MEDS: PIPERACILLIN-TAZOBACTAM 3.375 GM in DEXTROSE/WATER 1 50ML.BAG IVPB SCH ×3 (03:19→17:49)
[2017-04-03] MEDS: SODIUM CHLORIDE 0.9% 1,000 ML IV SCH (06:04)
[2017-04-03 06:08] LABS: Glucose,Whole Blood 130 mg/dL (75-99)
[2017-04-03 06:39] LABS: Anisocytosis Slight; Basophils # (A) 0.1 k/uL (0-0.2); Basophils % (A) 1 %; CH 26.1; CHCM 29.9; Eosinophils # (A) 0.1 k/uL (0-0.7); Eosinophils % (A) 1 %; HCT 35.8 % (34.0-46.0); HDW 3.24; HGB 10.4 gm/dL (11.4-16.0); Hypochromasia Marked; Luc # (Auto) 0.15; Luc % (Auto) 1; Lymphocytes # (A) 0.8 k/uL (1.0-4.8); Lymphocytes % (A) 4 %; MCH 25.4 pg (25.0-35.0); MCHC 29.1 g/dL (31.0-37.0); MCV 87.3 fL (80.0-100.0); Mean Platelet Volume 8.6; Monocytes % (A) 4 %; Neutrophils # (A) 20.4 k/uL (1.3-7.7); Neutrophils % (A) 91 %; WBC 22.5 k/uL (3.8-10.6); WBC (Perox) 23.73
[2017-04-03] MEDS: INSULIN ASPART 100 UNIT/ML 1 ML 10 ML VIAL SQ SCH ×3 (06:53→17:50)
[2017-04-03 07:00] LABS: ALT 98 U/L (9-52); AST 64 U/L (14-36); Alkaline Phosphatase 269 U/L (38-126); Anion Gap 11 mmol/L; Blood Urea Nitrogen 18 mg/dL (7-17); Calcium 9.1 mg/dL (8.4-10.2); Carbon Dioxide 19 mmol/L (22-30); Chloride 108 mmol/L (98-107); Glucose 131 mg/dL (74-99); Magnesium 1.9 mg/dL (1.6-2.3); Non-African American GFR(MDRD) >60 (>60 ml/min/1.73 sqM); Potassium 5.5 mmol/L (3.5-5.1); Sodium 138 mmol/L (137-145); Total Bilirubin 0.8 mg/dL (0.2-1.3); Total Protein 6.2 g/dL (6.3-8.2)
[2017-04-03] MEDS: SYMBICORT 160-4.5 MCG INHALER INHALATION SCH ×2 (07:36→19:23)
[2017-04-03] MEDS: IPRATROPIUM-ALBUTEROL 3 ML NEB INHALATION PRN ×3 (07:36→19:23)
[2017-04-03] MEDS: methylPREDNISolone SOD SUCCI 40 MG/ML 1 ML VIAL IV SCH (08:18)
[2017-04-03] MEDS: PANTOPRAZOLE 40 MG TABLET PO SCH (08:18)
[2017-04-03] MEDS: AMITRIPTYLINE HCL 25 MG TAB PO SCH (08:18)
[2017-04-03] MEDS: guaiFENesin 600 MG TABLET.ER PO SCH (08:19)
[2017-04-03] MEDS: ASPIRIN 81 MG PO SCH (08:19)
[2017-04-03] MEDS: METOPROLOL TARTRATE 25 MG TAB PO SCH (08:19)
[2017-04-03] MEDS: ATORVASTATIN 40 MG TAB PO SCH (08:19)
[2017-04-03] MEDS ORDERED: SODIUM POLYSTYRENE SULFONATE 15 GM/60 ML BOTTLE PO STA (08:24)
[2017-04-03 08:28] VITALS: RESP 24
[2017-04-03] MEDS ORDERED: SCOPOLAMINE 1.5MG/72HR PATCH TRANSDERM SCH (09:30)
--- NOTE | 2017-04-03 10:40 | P.PN ---
Subjective Progress Note Date: 04/03/17 This is a 66-year-old female with past medical history noted below significant for metastatic adenocarcinoma of the lung with known metastatic disease to the bone and brain who presented to the hospital with worsening shortness of breath. Patient been having progressive shortness of breath over the past several weeks. She recently finished antibiotic course of steroid course as an outpatient. She did not feel any better. For the past couple of days she was also having worsening left lower extremity pain. She noted some darkening of the skin that resolved prior to her presentation. She was evaluated in the emergency room and imaging of the chest showed worsening large cavitating mass of the right mid lung. Patient was started on broad-spectrum antibiotic and bronchodilators and was admitted to the hospital for further evaluation. Patient said that she is feeling slightly better since admission. She is requiring 2 L of oxygen via nasal cannula. 04/03/2017 patient met with oncology and radiation oncologist physician yesterday. At this time she has made her decision to proceed with comfort care and hospice. She does not want to undergo any chemo or radiation treatment. She is been changed to no code. Patient is alert and orientated to 3. All of her questions were answered. She'll be transferred to the fifth floor. Hospice will be consulted. Fluids as been hep-locked. Screening patch added. We'll continue with current pain medication and Xanax. Patient is still requiring a high level of oxygen she is on 15 L nasal cannula. She desats with any movement. Objective - Vital Signs Vital signs: Vital Signs Temp 97 F L 04/03/17 08:10 Pulse 109 H 04/03/17 08:10 Resp 24 04/03/17 08:10 BP 144/93 04/03/17 08:10 Pulse Ox 96 04/03/17 09:11 Intake & Output 04/02/17 04/03/17 04/03/17 18:59 06:59 18:59 Intake Total 600 Balance 600 Weight 67 kg Intake: Intake, IV Titration 300 Amount Piperacillin-Tazobactam 3 50 .375 gm In Dextrose/Water 1 50ml.bag @ 12.5 mls/hr IVPB Q8HR RUSTY Rx#: [id number] Vancomycin 1,250 mg In 250 Sodium Chloride 0.9% 250 ml @ 125 mls/hr IVPB Q12H RUSTY Rx#:[id number] Oral 300 Other: Voiding Method Bedpan Diaper Diaper Diaper Incontinent Incontinent Incontinent # Voids 1 1 - Exam Head normocephalic Neck supple Lungs minutes bilaterally Heart regular rate and rhythm S1-S2, no rub or gallop Abdomen is soft nontender nondistended positive bowel sounds no hepatosplenomegaly Extremities no edema Neuro alert and orientated to 3 - Labs CBC & Chem 7: 04/03/17 06:07 04/03/17 06:07 Labs: Abnormal Lab Results - Last 24 Hours (Table) 04/02/17 04/02/17 04/02/17 Range/Units 11:39 16:49 20:56 WBC (3.8-10.6) k/uL Hgb (11.4-16.0) gm/dL MCHC (31.0-37.0) g/dL RDW (11.5-15.5) % Neutrophils # (1.3-7.7) k/uL Lymphocytes # (1.0-4.8) k/uL Potassium (3.5-5.1) mmol/L Chloride (98-107) mmol/L Carbon Dioxide (22-30) mmol/L BUN (7-17) mg/dL Glucose (74-99) mg/dL POC Glucose (mg/dL) 121 H 139 H 138 H (75-99) mg/dL AST (14-36) U/L ALT (9-52) U/L Alkaline Phosphatase (38-126) U/L Total Protein (6.3-8.2) g/dL Albumin (3.5-5.0) g/dL 04/03/17 04/03/17 04/03/17 Range/Units 06:05 06:07 06:07 WBC 22.5 H (3.8-10.6) k/uL Hgb 10.4 L (11.4-16.0) gm/dL MCHC 29.1 L (31.0-37.0) g/dL RDW 17.0 H (11.5-15.5) % Neutrophils # 20.4 H (1.3-7.7) k/uL Lymphocytes # 0.8 L (1.0-4.8) k/uL Potassium 5.5 H (3.5-5.1) mmol/L Chloride 108 H (98-107) mmol/L Carbon Dioxide 19 L (22-30) mmol/L BUN 18 H (7-17) mg/dL Glucose 131 H (74-99) mg/dL POC Glucose (mg/dL) 130 H (75-99) mg/dL AST 64 H (14-36) U/L ALT 98 H (9-52) U/L Alkaline Phosphatase 269 H (38-126) U/L Total Protein 6.2 L (6.3-8.2) g/dL Albumin 2.8 L (3.5-5.0) g/dL Microbiology - Last 24 Hours (Table) 04/01/17 15:13 Gram Stain - Final Sputum Sputum Culture - Final Escherichia coli 03/30/17 23:08 Blood Culture - Preliminary Blood No Growth after 72 hours Assessment and Plan Assessment: 1. Acute COPD exacerbation 2. Underlying pneumonia suspected postobstructive: Blood and sputum culture pending. Continue broad spectrum antibiotic. Infectious disease following. 3. Stage IV adenocarcinoma of the lung with metastatic disease to the bone and the brain. Did not receive any treatment as of yet. She was seen and evaluated by oncology and radiation oncologist. Options were discussed with patient by oncologist and radiation oncologist. At this time patient wants no further treatment. And wants to proceed with hospice. 4. Essential hypertension: Blood pressure well controlled 5. Severe peripheral vascular disease with prior fem-fem bypass of the left lower extremity well-known to Dr. Sadler. Maintain on Xarelto 6. History of superficial phlebitis involving the greater saphenous vein on anticoagulation with Rivaroxaban per vascular surgery recommendations Hospice will be consulted. Continue with current pain medication and Xanax. Add scopolamine patch. Transfer patient to the fifth floor. I performed an examination of the patient and discussed their management with the physician Lead Mechanical Engineer. I have reviewed the Physician Lead Mechanical Engineer's notes and agree with the documented findings and plan of care
--- NOTE | 2017-04-03 11:39 | PN ---
PROGRESS NOTE DATE OF SERVICE: 04/02/2017 REASON FOR FOLLOWUP: Postobstructive pneumonia. INTERVAL HISTORY: The patient is afebrile, breathing slightly comfortably. She did have a cough and bringing up some sputum. No hemoptysis. Complaining of some pain in the epigastric area. Some nausea but no vomiting and no diarrhea. PHYSICAL EXAMINATION: Blood pressure 132/57 with a pulse of 105, temperature of 97, she is 93% on 10 L high- flow oxygen. General description is a middle-aged female up in the bed in no distress. RESPIRATORY SYSTEM: Unlabored breathing with coarse breath sounds on the left side, no wheeze. HEART: S1, S2. Regular rate and rhythm. ABDOMEN: Soft, no tenderness. EXTREMITIES: No edema of the feet. LABS: Hemoglobin is 9.3 with a white count of 16.1, BUN of 22, creatinine 0.65. Sputum showing gram-negative bacilli. DIAGNOSTIC IMPRESSION AND PLAN: Patient with metastatic lung cancer with a component of methicillin-resistant Staphylococcus aureus pneumonia and cavitation. Sputum showing a gram-negative. She is currently covered with Zosyn along with vanco will be continued, adjusting it further based on the culture report. Family present at bedside. Their questions were answered. MMODL / IJN: [id number] /
[2017-04-03 11:51] LABS: Glucose,Whole Blood 136 mg/dL (75-99)
--- NOTE | 2017-04-03 15:30 | PN ---
PROGRESS NOTE DATE OF SERVICE: 04/03/2017 REASON FOR FOLLOWUP: Possible pneumonia. INTERVAL HISTORY: The patient is afebrile. She is breathing slightly comfortably. Denies any significant chest pain. She did have some cough but not bringing up any sputum. No hemoptysis. No abdominal pain. No nausea, vomiting, or any diarrhea. PHYSICAL EXAMINATION: Her blood pressure is 134/69, pulse of 95, temperature of 97. She is 93% on high-flow oxygen. General description is a middle-aged female up in the bed, in no distress. RESPIRATORY SYSTEM: Unlabored breathing, coarse breath sounds bilaterally, moreso on the right side. HEART: S1, S2. Regular rate and rhythm. ABDOMEN: Soft, no tenderness. EXTREMITIES: No edema of the feet. LABS: Hemoglobin is 12.4, white count 22.5 with a BUN of 18, creatinine 0.60. Sputum so far showing an E coli that is sensitive to pathogen. Blood culture has been negative. DIAGNOSTIC IMPRESSION AND PLAN: Patient with stage IV metastatic lung cancer with a component of postobstructive pneumonia. So far, sputum is showing an Escherichia coli which is sensitive to pathogen, currently on vanco and Zosyn. If no other resistant organism is grown, will be able to narrow down antibiotic therapy. Continue supportive care. MMODL / IJN: [id number] /
--- NOTE | 2017-04-03 16:00 | P.PN ---
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 She was recently diagnosed with adenocarcinoma, stage IV lung cancer. She had been originally diagnosed in [facility]. A PET scan from January of this year revealed a large right lower lobe cavitary neoplasm with contralateral pulmonary metastasis, supraclavicular adenopathy in distant metastasis within the axial skeleton and left femur. A MRI of the brain revealed multiple enhancing nodules suggestive of metastasis. There is also noted calvarial lesions involving the left parietal calvarium. She was seen and evaluated while here as an inpatient one month ago by Dr. Ortiz for a COPD exacerbation. There is also some postobstructive pneumonia secondary to the lung cancer. She was treated and subsequent discharge home on 03/02/2017. The patient was to follow-up with Dr. Hoang in biomarkers were pending. She represented here to the emergency room yesterday with complaints of lower extremity pain and discoloration. A CT angiogram of the thoracic and abdominal aorta revealed atherosclerotic vascular disease. 4 cm aneurysm of the thoracic aorta. No evidence of dissection. 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 There is patency of the previous femoral-femoral artery bypass graft. The left femoral arteries filled from the bypass graft. Dopplers of the bilateral lower extremities were negative for DVT. The patient is on Xarelto in the outpatient setting. The patient also had complaints of increasing shortness of breath and we are consulted for the same. Her chest x-ray does reveal the large cavitating mass in the right mid lung that is slightly increased in size compared to previous in February 2017. There is new pulmonary vascular congestion consistent with congestive heart failure. Lymphatics attic metastatic disease cannot be excluded. There is a small right pleural effusion. Current white count 17.2. Hemoglobin 11.7. D-dimer 11.73. Creatinine 0.90. Calcium 13.2. ALT 96, alk phos 317. Troponin negative. ProBNP 316. She is currently afebrile. Maintaining O2 saturations in the mid 90s on 3 L/m per nasal cannula. Hemodynamically stable. She has been initiated on bronchodilators, Symbicort, IV Solu-Medrol. She is on vancomycin and Zosyn. She is currently awake. She is somewhat slow to respond. She currently denies any worsening shortness of breath. She has a loose nonproductive cough. The patient is seen again today 04/01/2017 in follow-up on selective. She is slightly more alert and oriented today as compared to yesterday. Her calcium has improved currently at 10.8. She has been seen by medical oncology and the patient has been offered immunotherapy if she and her son agree. They've also been offered palliative radiation treatment to the bone and brain. Again awaiting further discussion with the family. Presently, she denies any worsening shortness of breath, cough or congestion. She is maintaining good O2 saturations in the 90s on 3 L/m per nasal cannula. She's been afebrile. Hemodynamically stable. White count 18.5. Hemoglobin 8.9. AST of 39 ALT of 80 alk phos 212. She has been seen by Dr. Sadler who feels there is no need for any surgical intervention regarding her lower extremity vascular changes. The patient is seen again today 04/02/2017 in follow-up on the selective unit. She is currently awake and alert. She still has some recall issues. She has been having increasing shortness of breath cough and congestion. She is now on 10 L high flow nasal cannula to maintain O2 saturations in the 90s. She is stating that she does not want to continue with any interventions at all. She does seem interested in hospice. There is a meeting with oncology and the patient's son and ex- today at noon. On 04/03/2017 patient seen in follow-up. She has discussed her options for the treatment of stage IV right lung adenocarcinoma with metastasis with radiation oncologist and oncology yesterday. She has made a decision to proceed with comfort care and hospice enrollment. She does not want to undergo any chemo or radiation treatment. She has changed her code to DO NOT RESUSCITATE. She is awake, alert and is of sound mind. At this point this is a very reasonable decision. She is on 15 L per nasal cannula, she is moderately short of breath at rest. She desats with any movement or with conversation. Her lung sounds are positive for scattered rhonchi throughout the lung [place]. She is awaiting for her family to arrive to her bedside. Arrangements have been made to enroll patient in hospice. We will follow with the patient on an as-needed basis. Objective - Vital Signs Vital signs: Vital Signs Temp 97 F L 04/03/17 08:10 Pulse 102 H 04/03/17 15:39 Resp 24 04/03/17 12:00 BP 134/69 04/03/17 12:00 Pulse Ox 95 04/03/17 15:29 Intake & Output 04/02/17 04/03/17 04/03/17 18:59 06:59 18:59 Intake Total 600 200 Balance 600 200 Weight 67 kg Intake: Intake, IV Titration 300 Amount Piperacillin-Tazobactam 3 50 .375 gm In Dextrose/Water 1 50ml.bag @ 12.5 mls/hr IVPB Q8HR RUSTY Rx#: [id number] Vancomycin 1,250 mg In 250 Sodium Chloride 0.9% 250 ml @ 125 mls/hr IVPB Q12H RUSTY Rx#:[id number] Oral 300 200 Other: Voiding Method Bedpan Diaper Diaper Diaper Incontinent Incontinent Incontinent # Voids 1 1 - Exam GENERAL EXAM: Alert, fairly comfortable in no apparent distress. HEAD: Normocephalic. EYES: Normal reaction of pupils, equal size. NOSE: Clear with pink turbinates. THROAT: No erythema or exudates. NECK: No masses, no JVD. CHEST: No chest wall deformity. LUNGS: Equal air entry with scattered rhonchi, crackles in the posterior bases more so on the right lung. Diminished. CVS: S1 and S2 normal with no audible murmur, regular rhythm. ABDOMEN: No hepatosplenomegaly, normal bowel sounds, no guarding or rigidity. SPINE: No scoliosis or deformity SKIN: No rashes CENTRAL NERVOUS SYSTEM: No focal deficits, tone is normal in all 4 extremities. EXTREMITIES: There is no peripheral edema. No clubbing, no cyanosis. Peripheral pulses are intact. - Labs CBC & Chem 7: 04/03/17 06:07 04/03/17 06:07 Labs: Abnormal Lab Results - Last 24 Hours (Table) 04/02/17 04/02/17 04/03/17 Range/Units 16:49 20:56 06:05 WBC (3.8-10.6) k/uL Hgb (11.4-16.0) gm/dL MCHC (31.0-37.0) g/dL RDW (11.5-15.5) % Neutrophils # (1.3-7.7) k/uL Lymphocytes # (1.0-4.8) k/uL Potassium (3.5-5.1) mmol/L Chloride (98-107) mmol/L Carbon Dioxide (22-30) mmol/L BUN (7-17) mg/dL Glucose (74-99) mg/dL POC Glucose (mg/dL) 139 H 138 H 130 H (75-99) mg/dL AST (14-36) U/L ALT (9-52) U/L Alkaline Phosphatase (38-126) U/L Total Protein (6.3-8.2) g/dL Albumin (3.5-5.0) g/dL 04/03/17 04/03/17 04/03/17 Range/Units 06:07 06:07 11:42 WBC 22.5 H (3.8-10.6) k/uL Hgb 10.4 L (11.4-16.0) gm/dL MCHC 29.1 L (31.0-37.0) g/dL RDW 17.0 H (11.5-15.5) % Neutrophils # 20.4 H (1.3-7.7) k/uL Lymphocytes # 0.8 L (1.0-4.8) k/uL Potassium 5.5 H (3.5-5.1) mmol/L Chloride 108 H (98-107) mmol/L Carbon Dioxide 19 L (22-30) mmol/L BUN 18 H (7-17) mg/dL Glucose 131 H (74-99) mg/dL POC Glucose (mg/dL) 136 H (75-99) mg/dL AST 64 H (14-36) U/L ALT 98 H (9-52) U/L Alkaline Phosphatase 269 H (38-126) U/L Total Protein 6.2 L (6.3-8.2) g/dL Albumin 2.8 L (3.5-5.0) g/dL Microbiology - Last 24 Hours (Table) 04/01/17 15:13 Gram Stain - Final Sputum Sputum Culture - Final Escherichia coli 03/30/17 23:08 Blood Culture - Preliminary Blood No Growth after 72 hours Assessment and Plan Plan: Assessment: #1 Lower extremity pain and discomfort in a patient with a known history of severe peripheral vascular occlusive disease. CT angiogram of the thoracic and abdominal aorta revealed a 4 cm aortic aneurysm of the thoracic aorta. No evidence of dissection. Complete occlusion of the left common iliac artery. There is patency of the femoral-femoral bypass graft with left femoral artery filling from the bypass graft. Dopplers of the bilateral lower extremities are negative. Remains on Xarelto. #2 Acute exacerbation of chronic obstructive pulmonary disease. #3 Large increasing mass in the right mid lung. Stage IV adenocarcinoma. Lymphangitic metastatic disease is not excluded. Suspect postobstructive pneumonia. #4 Acute on chronic hypoxic respiratory failure secondary to above. 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 #6 Metastasis to the brain. #7 Severe peripheral vascular occlusive disease with previous fem-fem bypass with revisions and previous thrombectomy. #8 Thoracic aortic aneurysm, stable compared to previous. #9 History of chronic tobacco dependence. #10 History of DVT. #11 Hypertension. #12 Poor overall functional performance based on the above-mentioned multiple comorbidities. Plan: Patient has met with oncology and radiation oncologist. After discussing her options, she has decided to change her CODE STATUS to DO NOT RESUSCITATE, and proceed with comfort care protocol. She will be enrolled in hospice, she will be moved down to oncology floor. She is moderately short of breath at rest, becomes more dyspneic with conversation and any activity. We will continue With comfort care per patient's wishes. We will see the patient on as-needed basis. I performed a history & physical examination of the patient and discussed their management with my nurse practitioner, Karma Lance. I reviewed the nurse practitioner's note and agree with the documented findings and plan of care. Lung sounds are positive for scattered rhonchi throughout the lung [place]. The findings and the impression was discussed with the patient. I attest to the documentation by the nurse practitioner. Time with Patient: Less than 30
[2017-04-03 16:04] VITALS: BP 138/76; TEMP 98
[2017-04-03 17:39] LABS: Glucose,Whole Blood 143 mg/dL (75-99)
[2017-04-03 19:36] VITALS: PULSE 101
[2017-04-03 20:22] LABS: Glucose,Whole Blood 145 mg/dL (75-99)
[2017-04-04] MEDS ORDERED: VANCOMYCIN TROUGH DUE 1 EACH MISC MISCELLANE ONE (11:00)
[2017-04-05] MEDS ORDERED: ERGOCALCIFEROL 50,000 UNIT CAP PO SCH (09:00)
--- NOTE | 2017-04-08 11:15 | CDI ---
In responding to this query, please exercise your independent professional judgment. The [facility] Coding Staff and Clinical Documentation Specialists appreciate your assistance in clarifying documentation, maintaining compliance with coding guidelines, accurately documenting patients condition and capturing severity of illness. The fact that a question is asked does not imply that any particular answer is desired or expected. Communication forms are a method of clarifying documentation and are not made part of the Legal Health Record. Thank you in advance for your clarification. Last Revision, March 2015 Documentation Clarification Form Date: 04/08/2017 10:58:00 AM From: GENARO Chavarria, Sat Act Instructor Admit Date: 03/30/2017 11:00:00 PM Patient Name: Stephanie Jo Visit Number: [id number] Discharge Date: Dr. Tesha Bynum Pneumonia was documented on H&P and progress notes. Patient has stage IV adenocarcinoma of the lung with mets to bone and brain. Ms. Jo was having progressive shortness of breath. Chest x-ray in ED showed worsening cavitating mass in right mid lung. She was started on broad-spectrum antibiotics, bronchodilators, and 2L of oxygen via nasal cannula. Sputum culture is E-Coli. Please clarify: Bacterial Pneumonia, specify causal organism (if known) Gram Negative Pneumonia Due to Strep Due to Staph Due to E. Coli Other bacteria (specify) Viral Pneumonia, specify casual organism (if known) Unable to determine Link any associated conditions to the pneumonia: Influenza with secondary gram negative pneumonia Sepsis due to pneumonia Acute respiratory failure due to pneumonia Other, please specify Please document in your discharge summary in order to capture severity of illness and risk of mortality. Include clinical findings that support your diagnosis. FYI: Press F11 to launch patient chart. If you have a question about this query, please contact Laina Cage, Sat Act Instructor at [phone] between 8am and 5pm. Probably post- obstructive MTDD
--- NOTE | 2017-04-14 16:05 | CDI ---
In responding to this query, please exercise your independent professional judgment. The [facility] Coding Staff and Clinical Documentation Specialists appreciate your assistance in clarifying documentation, maintaining compliance with coding guidelines, accurately documenting patients condition and capturing severity of illness. The fact that a question is asked does not imply that any particular answer is desired or expected. Communication forms are a method of clarifying documentation and are not made part of the Legal Health Record. Thank you in advance for your clarification. Last Revision, March 2015 Jim Gill [address] [place] [address] Documentation Clarification Form Date: 04/08/2017 10:58:00 AM From: Lavonne Becker Admit Date: 03/30/2017 11:00:00 PM Patient Name: Stephanie Jo Visit Number: [id number] Discharge Date: 04/03/17 Dr. Tesha Bynum Responses are not permitted on the query form until after Apr [address] Block s letter to the medical staff. Please respond with addendum to the progress note or discharge summary. Thank you for your assistance. Pneumonia was documented on H&P and progress notes. Patient has stage IV adenocarinoma of the lung with mets to bone and brain. Ms. Jo was having progressive shortness of breath. Chest x-ray in ED showed worsening cavitating mass in right mid lung. She was started on broad-spectrum antiobiotics, bronchodilators, and 2L of oxygen via nasal cannula. Sputum culture is E-Coli. Please clarify: Bacterial Pneumonia, specify causal organism (if known) Gram Negative Pneumonia Due to Strep Due to Staph Due to E. Coli Other bacteria (specify) Viral Pneumonia, specify casual organism (if known) Unable to determine Link any associated conditions to the pneumonia: Influenza with secondary gram negative pneumonia Sepsis due to pneumonia Acute respiratory failure due to pneumonia Other, please specify Please document in your discharge summary in order to capture severity of illness and risk of mortality. Include clinical findings that support your diagnosis. FYI: Press F11 to launch patient chart. If you have a question about this query, please contact Laina Cage, Boat Joiner at [phone] between 8am and 5pm. unable to determine MTDD
--- NOTE | 2017-04-20 09:17 | CDI ---
Last Revision, April 2017 Date: 04/20/2017 9:04:00 AM From: GENARO Chavarria; Laina Cage, Paint Mixer Hand Admit Date: 03/30/2017 11:00:00 PM Patient Name: Stephanie Jo Visit Number: [id number] Discharge Date: 04/03/2017 ATTENTION: The Clinical Documentation Specialists (CDI) and [facility] Coding Staff appreciate your assistance in clarifying documentation. Please respond to the clarification below the line at the bottom and electronically sign. The CDI & [facility] Coding staff will review the response and follow-up if needed. Please note: Queries are made part of the Legal Health Record. If you have any questions, please contact the author of this message via ITS. Dr. Tesha Bynum Pneumonia was documented on H&P and progress notes. Patient has stage IV adenocarcinoma of the lung with mets to bone and brain. Ms. Jo was having progressive shortness of breath. Chest x-ray in ED showed worsening cavitating mass in right mid lung. She was started on broad-spectrum antibiotics, bronchodilators, and 2L of oxygen via nasal cannula. Sputum culture is E-Coli. Please clarify: Bacterial Pneumonia, specify causal organism (if known) Gram Negative Pneumonia Due to Strep Due to Staph Due to E. Coli Other bacteria (specify) Viral Pneumonia, specify casual organism (if known) Unable to determine Link any associated conditions to the pneumonia: Influenza with secondary gram negative pneumonia Sepsis due to pneumonia Acute respiratory failure due to pneumonia Other, please specify If you have a question about this query, please contact Laina Cage Paint Mixer Hand at [phone] between 8am and 5pm. Please continue to document in your progress notes and discharge summary in order to capture severity of illness and risk of mortality. Include clinical findings that support your diagnosis. MTDD
--- NOTE | 2017-04-24 08:06 | CDI ---
Documentation Clarification Form Date: 04/20/2017 9:12:00 AM From: Lavonne Becker Phone: Admit Date: 03/30/2017 11:00:00 PM Patient Name: Stephanie Jo Visit Number: [id number] Discharge Date: ATTENTION: The Clinical Documentation Specialists (CDI) and [facility] Coding Staff appreciate your assistance in clarifying documentation. Please respond to the clarification below the line at the bottom and electronically sign. The [facility] & [facility] Coding staff will review the response and follow-up if needed. Please note: Queries are made part of the Legal Health Record. If you have any questions, please contact the author of this message via ITS. Dr. Tesha Bynum Date: 04/20/2017 9:04:00 AM From: GENARO Chavarria; Laina Cage, Inventory Control Specialist Admit Date: 03/30/2017 11:00:00 PM Patient Name: Stephanie Jo Visit Number: [id number] Discharge Date: 04/03/2017 ATTENTION: The Clinical Documentation Specialists (CDI) and [facility] Coding Staff appreciate your assistance in clarifying documentation. Please respond to the clarification below the line at the bottom and electronically sign. The [facility] & [facility] Coding staff will review the response and follow-up if needed. Please note: Queries are made part of the Legal Health Record. If you have any questions, please contact the author of this message via ITS. Dr. Tesha Bynum Pneumonia was documented on H&P and progress notes. Patient has stage IV adenocarcinoma of the lung with mets to bone and brain. Ms. Jo was having progressive shortness of breath. Chest x-ray in ED showed worsening cavitating mass in right mid lung. She was started on broad-spectrum antibiotics, bronchodilators, and 2L of oxygen via nasal cannula. Sputum culture is E-Coli. Please clarify: Bacterial Pneumonia, specify causal organism (if known) Gram Negative Pneumonia Due to Strep Due to Staph Due to E. Coli Other bacteria (specify) Viral Pneumonia, specify casual organism (if known) Unable to determine Link any associated conditions to the pneumonia: Influenza with secondary gram negative pneumonia Sepsis due to pneumonia Acute respiratory failure due to pneumonia Other, please specify If you have a question about this query, please contact Laina Cage Inventory Control Specialist at [phone] between 8am and 5pm. Please clarify below: MTDD
== END 2017-04-03 20:21 | disposition hospice, inpatient (51) | DRG 177 ==
LOC: EC 16:40 → 6SEL 23:00 → 5ONC 04-03 13:29
PROVIDERS: ADMIT Internal Medicine; ATTEND Internal Medicine
DX: J15.6 Pneumonia due to other Gram-negative bacteria (principal); J96.21 Acute and chronic respiratory failure with hypoxia; I74.5 Embolism and thrombosis of iliac artery; C78.02 Secondary malignant neoplasm of left lung; I11.0 Hypertensive heart disease with heart failure; E83.52 Hypercalcemia; I50.9 Heart failure, unspecified; C79.31 Secondary malignant neoplasm of brain; C34.91 Malignant neoplasm of unspecified part of right bronchus or lung; C79.51 Secondary malignant neoplasm of bone; J44.0 Chronic obstructive pulmonary disease with (acute) lower respiratory infection; J44.1 Chronic obstructive pulmonary disease with (acute) exacerbation; J15.211 Pneumonia due to Methicillin susceptible Staphylococcus aureus; F12.90 Cannabis use, unspecified, uncomplicated; I71.2 Thoracic aortic aneurysm, without rupture; Z66 Do not resuscitate; I70.209 Unspecified atherosclerosis of native arteries of extremities, unspecified extremity; Z79.01 Long term (current) use of anticoagulants; Z79.51 Long term (current) use of inhaled steroids; Z79.899 Other long term (current) drug therapy; Z80.1 Family history of malignant neoplasm of trachea, bronchus and lung; Z86.718 Personal history of other venous thrombosis and embolism; Z86.72 Personal history of thrombophlebitis; Z87.01 Personal history of pneumonia (recurrent); Z87.891 Personal history of nicotine dependence; Z89.429 Acquired absence of other toe(s), unspecified side
CPT/HCPCS: 36415; 70553; 71020; 71275; 75635; 80053; 80202; 82550; 82553; 83735; 83880; 84484; 85025; 85379; 85610; 85730; 87040; 87070; 87077; 87186; 87205; 93005; 93970; 94640; 96361; 96365; 96366; 96374; 96375; 99285